=== PATIENT | female | born 1980 | race Caucasian/White ===

== ENCOUNTER 2022-08-22 07:36 | Outpatient (CLI) | payer OTHER, SELFPAY | END 2022-08-22 07:37 | disposition home or self-care (01) | LOC: OP CLINIC 07:37 | PROVIDERS: PCP Family Medicine; Visit Provider Internal Medicine | DX: Z12.11 Encounter for screening for malignant neoplasm of colon (principal); K63.89 Other specified diseases of intestine; K64.8 Other hemorrhoids; Z83.71 Family history of colonic polyps | CPT/HCPCS: 45378; J2250; J3010 ==

== ENCOUNTER 2022-09-24 21:02 | Emergency (ER) | payer OTHER, SELFPAY ==
[2022-09-24 21:09] VITALS: BP 149/87; PULSE 79; RESP 18; TEMP 36.1; O2SAT 100
--- NOTE | 2022-09-24 21:24 | ED.GENADULT ---
HPI - General Adult General Chief complaint: Ear/Nose/Throat Problem Stated complaint: ear pain on r side and possible pink eye Time Seen by Provider: 09/24/22 21:07 History of Present Illness HPI narrative: Patient is a 42-year-old female with right ear pain and right eye redness, mattering in the morning. Her son been sick with viral upper respiratory infection. She developed a right ear pain today. No cough no shortness of breath no chest pain. Related Data Home Medications Medication Instructions Recorded Confirmed ascorbic acid (vitamin C) 500 mg mg PO 06/12/22 06/12/22 capsule cholecalciferol (vitamin D3) 50 2,000 unit PO DAILY 06/12/22 06/12/22 mcg (2,000 unit) tablet famotidine 20 mg tablet 20 mg PO DAILY 06/12/22 06/12/22 hydroxychloroquine 200 mg tablet mg PO BID 06/12/22 06/12/22 Previous Rx's Medication Instructions Recorded cephalexin 500 mg capsule 500 mg PO QDAY PRN uti prophylaxis 06/12/22 #30 caps omeprazole 40 mg capsule,delayed 40 mg PO QDAY #30 caps 06/12/22 release peg 3350-electrolytes 236 240 ml PO Q10M #4,000 mL 06/12/22 gram-22.74 gram-6.74 gram-5.86 gram solution (Golytely) peg 3350-electrolytes 236 240 ml PO ONCE #4,000 mL 08/15/22 gram-22.74 gram-6.74 gram-5.86 gram solution (Golytely) Allergies Allergy/AdvReac Type Severity Reaction Status Date / Time nitrofurantoin Allergy Severe liver Verified 06/12/22 13:27 failure Review of Systems Narrative: No history of recurrent strep, pulmonary infections. 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 EtOH Smoking Status: Never smoker Non-prescribed substance use: denies use Exam Narrative: Exam Narrative: Objective: Vital signs show slightly elevated blood pressure Right eye conjunctivitis, right otitis media, left TM clear, throat clear, neck supple Const: Vital Signs, click to edit/add: Vital Signs - 24 hr 09/24/22 21:09 Temperature 97.0 F L Pulse Rate [Left P ulse Oximeter] 79 Respiratory Rate 18 Blood Pressure [Ri ght Upper Arm] 149/87 H Pulse Oximetry 100 Oxygen Delivery Me thod Room Air Course Vital Signs Vital signs: Initial Vital Signs Temperature 97.0 F L 09/24/22 21:09 Temperature Source Temporal Artery Scan 09/24/22 21:09 Pulse Rate 79 09/24/22 21:09 Pulse Rhythm Regular 09/24/22 21:09 Respiratory Rate 18 09/24/22 21:09 Blood Pressure 149/87 H 09/24/22 21:09 Blood Pressure Mean 107 09/24/22 21:09 Blood Pressure Position Sitting 09/24/22 21:09 Pulse Oximetry 100 09/24/22 21:09 Oxygen Delivery Method Room Air 09/24/22 21:09 Vital Signs Temperature 97.0 F L 09/24/22 21:09 Pulse Rate 79 09/24/22 21:09 Respiratory Rate 18 09/24/22 21:09 Blood Pressure 149/87 H 09/24/22 21:09 Pulse Oximetry 100 09/24/22 21:09 Oxygen Delivery Method Room Air 09/24/22 21:09 Temperature 97.0 F L 09/24/22 21:09 Pulse Rate 79 09/24/22 21:09 Respiratory Rate 18 09/24/22 21:09 Blood Pressure 149/87 H 09/24/22 21:09 Pulse Oximetry 100 09/24/22 21:09 Oxygen Delivery Method Room Air 09/24/22 21:09 Medical Decision Making MDM Narrative Medical decision making narrative: 42-year-old white female with history of upper respiratory infection right eye conjunctivitis and right otitis media. Will recommend Advil Tylenol, will give Keflex 500 now and then 500 b.i.d. times 10 days from [place] meds. Light activity, advance as tolerated, regular diet. Recheck with regular doctor as needed, return to ED problems or concerns Discharge Plan Discharge Clinical Impression: Acute right otitis media, Conjunctivitis Patient Disposition: Home, Self-Care Condition: Stable Additional Instructions: Light activity, Keflex twice a day times 10 days, Tylenol Advil as needed. Return to the ED as needed, follow-up primary care as needed. Activity Level: Light activity Discharge Diet: Regular Prescriptions: No Action famotidine 20 mg tablet 20 mg PO DAILY hydroxychloroquine 200 mg tablet PO BID cholecalciferol (vitamin D3) 50 mcg (2,000 unit) tablet 2,000 unit PO DAILY ascorbic acid (vitamin C) 500 mg capsule PO cephalexin 500 mg capsule 500 mg PO QDAY PRN (Reason: uti prophylaxis) Qty: 30 3RF Rx Instructions: Take on dose after intercourse for UTI prevention omeprazole 40 mg capsule,delayed release(DR/EC) 40 mg PO QDAY Qty: 30 11RF peg 3350-electrolytes [Golytely] 236-22.74-6.74 -5.86 gram recon soln 240 ml PO Q10M Qty: 4000 0RF Rx Instructions: until fecal effluent is clear peg 3350-electrolytes [Golytely] 236-22.74-6.74 -5.86 gram recon soln 240 ml PO ONCE Qty: 4000 0RF Rx Instructions: 4pm day prior to procedure. Drink 8oz glass every15 minutes until 1/2 of solution is gone. 6 hours prior to procedure time drink 8oz glass every 15 minutes until remaining solution is gone. Follow Up/Referrals: Colt Recinos MD [Primary Care Provider] - Stand Alone Forms: [facility] Info Instructions
[2022-09-24] MEDS: cephALEXin 500 MG CAPSULE PO (21:32)
--- OUTSIDE RECORDS SUMMARY | 2022-09-24 21:34 | XMS_ITS | Continuity of Care Document ---
Author Name Unknown Organization [facility] Address [address] [address] [place] [address] Phone Care Team Providers Care Retail Beauty Specialist Name Role Phone Unavailable Unavailable Unavailable Allergies, Adverse Reactions, Alerts Substance Reaction Status Criticality nitrofurantoin cholestatic hepatitis(severe) Active No Information WARNIN allergy(ies) could not be collected because the type is not supported. Please contact the source practice for further details. Medications Medication Instructions Dosage Effective Dates (start - stop) Status Comments ursodiol 300 mg capsule take 1 Capsule by oral route 3 times every day with food 1 Capsule - No Longer Active Kelnor 1/35 (28) 1 mg-35 mcg tablet take 1 tablet by oral route every day 1.00 tablet - No Longer Active Macrobid 100 mg capsule take 1 capsule (100MG) by oral route every day as needed after intercourse - No Longer Active ibuprofen 200 mg tablet take 1 tablet (200MG) by ORAL route every 6 hours as needed for joint pain 200 MG - No Longer Active Zantac Maximum Strength 150 mg tablet take 1 tablet (150MG) by oral route every day as needed - No Longer Active Procedures Procedure Date Offic/outpt E&m Estab Low-mod 4 Routine Serum Collection Hepatic Function Panel Routine Serum Collection Hepatic Function Panel Routine Serum Collection Hepatic Function Panel Prothrombin Time Routine Serum Collection Hepatic Function Panel Prothrombin Time Routine Serum Collection Gg; Ige Hepatic Function Panel Creatinine; Bld Prothrombin Time Gg; Iga, Igd, Igg, Igm, Ea Offic/outpt E&m Estab Mod-hi 2 14 Subsqt Hosp-da E&m Minr Compl 4 Init Inpt Cons New/est Mod-hi 4 Advance Directives Directive Yes / No Effective Date File Name No Information Encounters Encounter Description Practice Location Reason(s) For Visit Diagnoses Date Provider Providers Copied on Encounter Offic/outpt E&m Estab Low-mod [facility], [address] [address], [place], [place], [id number], [place] tel:[phone] [facility] Liver Symptoms or Concerns (chief complaint) Hepatitis Nos 3 0-201 4 No Information Referring Provider: Referral Self. [facility], [address] [address], [place], [place], [id number], [place] tel:[phone] [facility] Hepatitis Nos 2 3-201 4 No Information Referring Provider: Referral Self. [facility], [address] [address], [place], [place], [id number], [place] tel:[phone] [facility] Hepatitis Nos Sep-2 4-201 4 No Information Referring Provider: Referral Self. [facility], [address] [address], [place], [place], [id number], [place] tel:[phone] [facility] Hepatitis Nos Aug-2 7- 4 Katty Nance. [address] [facility], [place], [place], [id number], [place]. tel:[phone] Referring Provider: Referral Self. [facility], [address] [address], [place], [place], [id number], [place] tel:[phone] [facility] Hepatitis Nos Aug-2 6-201 4 No Information Referring Provider: Referral Self. [facility], [address] [address], [place], [place], [id number], [place] tel:[phone] [facility] Hepatitis Nos Aug-0 2-201 4 No Information [facility], [address] [address], [place], [place], [id number], [place] tel:[phone] [facility] Hepatitis Nos Fe 4 No Information Referring Provider: Referral Self. [facility], [address] [address], [place], [place], [id number], tel:[phone] [facility] Hepatitis Nos 4 No Information [facility], [address] [address], [place], [place], [id number], [place] tel:[phone] [facility] Hepatitis NosRUQ Pain 4 No Information Referring Provider: Referral Self. Offic/outpt E&m Estab Mod-hi 2 [facility], [address] [address], [place], [place], [id number], tel:[phone] [facility] Hepatitis NosRUQ Pain 0 4 No Information Referring Provider: Referral Self. Subsqt Hosp-da E&m Minr Compl [facility], [address] [address], [place], [place], [id number], tel:[phone] [facility] No Information 4 [facility]. [address] [place] [address], [id number], . tel:[phone] Referring Provider: Jenny Smallwood, [address] [place], [address]. tel:[phone] Init Inpt Cons New/est Mod-hi [facility], [address] [address], [place], [place], [id number], [place] tel:[phone] [facility] No Information 4 Pete Diego. [address] [place] [address], [id number], . tel:[phone] Referring Provider: Jenny Smallwood, [address] [place], [address]. tel:[phone] Family History Family Member Type Diagnosis Age At Onset First degree family history Problem (finding) No history of Cancer, colon First degree family history Problem (finding) No Family history of No history of Colon Polyps First degree family history Problem (finding) No history of Crohn's First degree family history Problem (finding) alcoholism First degree family history Problem (finding) No history of Ulcerative Colitis First degree family history Problem (finding) peptic ulceration Payers Payer name Insurance type Covered constitution party ID Zack pastrana(s) [employer] Of [facility] [id number] Social History Type Description Quantity Date Captured Comments Alcohol Use Details Caffeine Use Details Unknown Tobacco Use Status Never smoked tobacco 2013 Smoking Status Never smoker Non-Smoking Tobacco Use Details : No Details Available : No Details Available Sex Female Vital Signs Date / Time: Height Weight BMI Pulse Rate Blood Pressure Temperature Respiratory Rate Body Surface Area Head Circumference Head Circ. Percentile Wt./Julien. Percentile BMI percentile Pulse Ox Inhaled Ox 10:01 AM 71.00 in 92.533 kg (204.00 lbs) 28.4 5 kg/m eter (2) 68 /min 110/75 mm[Hg] Chief Complaint And Reason For Visit From encounter dated '12/22/2013 10:00'. Liver Symptoms or Concerns (chief complaint). Description: This very pleasant 33-year-old woman presented to Hepatology Clinic 07/04/2013 with an acute cholestatic hepatitis. The last week of May2013 she noted malaise and fatigue with loss of appetite. In early June 2013, she developed rapidly progressive cholestasis associated with pruritus and more profound nausea with anorexia. Clinical and laboratory evaluation favored a drug induced liver injury, most likely related to nitrofurantoin which was completed about 7-8 days prior to the onset of icterus. She was on female steroid hormone therapy for BCP as Kelnor regularly up to the onset of this cholestasis. Though not a new medication for her the Kelnor was stopped as well. For more complete detail I refer the reader to the initial Hepatology consultation 07/04/2013.She has been followed clinically and by serial laboratory with rapid resolution of symptoms and steady normalization of liver function tests (LFT). Essentially normal 10/16/2013 LFT panel is now fully normal 12/15/2013. She now feels well. There is no other identified significant interval medical or surgical illness. She would like to restart a BCP. Reason For Referral Reason For Referral No Information Plan Of Treatment Date Type Action Status No Information History Of Present Illness Encounter Date Complaint History Of Prese nt Illness Liver Symptoms or Concerns This very pleasant 33-year-old woman presented to Hepatology Clinic 07/04/2013 with an acute cholestatic hepatitis. The last week of May 2013 she noted malaise and fatigue with loss of appetite. In early June 2013, she developed rapidly progressive cholestasis associated with pruritus and more profound nausea with anorexia. Clinical and laboratory evaluation favored a drug induced liver injury, most likely related to nitrofurantoin which was completed about 7-8 days prior to the onset of icterus. She was on female steroid hormone therapy for BCP as Kelnor regularly up to the onset of this cholestasis. Though not a new medication for her the Kelnor was stopped as well. For more complete detail I refer the reader to the initial Hepatology consultation 07/04/2013.She has been followed clinically and by serial laboratory with rapid resolution of symptoms and steady normalization of liver function tests (LFT). Essentially normal 10/16/2013 LFT panel is now fully normal 12/15/2013. She now feels well. There is no other identified significant interval medical or surgical illness. She would like to restart a BCP. Functional Status Date Functional Assessmen t No Information Medications Administered Medication Instructions Dosage Effective Dates (start - stop) Status Comments No Drug Therapy Prescribed Instructions Date Instruction Additional Infor mation No Information Assessments Type Assessment Date assessment Hepatitis Nos impression It is my impression that this very pleasant 33 year old woman experienced an acute cholestatic hepatitis, fortunately without convincing evidence of hepatocellular failure and with timely recovery. The working diagnosis needs to be DILI (drug induced liver injury). The likely agent was nitrofurantoin (last taken about 1 week prior to onset of icterus). Though it cannot be fully excluded it is less likely this was related to Kelnor (ethynodiol/ ethinyl estradiol). This process is now fully resolved and should not produce further health risk. It is recommended that in 2015 at an annual general medical examination liver function test panel (LFT) be repeated once more.She should be considered as allergic to nitrofurantoin. I would not retest this.The female steroid hormone product is less likely to be the cause. If it is elected to restart a female steroid hormone therapy, I would recommend checking LFT & INR at 2, 4 & 12 weeks of therapy, sooner if any symptoms. Mental Status Date Cognitive Assessment Orientation - Anderson ed to time, place, person, situation. Patient Care Teams Name Effective Dates (start - stop) Status Members No Information
== END 2022-09-24 21:38 | disposition home or self-care (01) ==
LOC: ED 21:32
PROVIDERS: Emergency Provider Family Medicine; PCP Family Medicine
DX: H66.91 Otitis media, unspecified, right ear (principal); H10.021 Other mucopurulent conjunctivitis, right eye
CPT/HCPCS: 99283; A9270

== ENCOUNTER 2023-10-01 07:42 | Outpatient (CLI) | payer OTHER, SELFPAY ==
--- OUTSIDE RECORDS SUMMARY | 2023-10-05 10:07 | XMS_ITS | Clinical Summary ---
Author Name Unknown Organization [place] Address [address] [place] [id number] Care Team Providers Care Agricultural Education Professor Name Role Phone [facility], [facility] Primary Care Provider Alice Dey PA-C Unavailable [phone] Allergies Active Allergy Reactions Criticality Noted Date Comments Nitrofurantoin Other (See Comments) High 03/10/2015 Liver issues/ jaundice. Medications Medication Sig Dispensed Refills Start Date End Date Status Multiple Vitamin (MULTI-VITAMIN DAILY PO) Multi Vitamin Active hydroxychloroquine (PLAQUENIL) 200 MG tablet Take 200 mg by mouth 2 times daily Active omeprazole (PRILOSEC) [address] capsule Take 40 mg by mouth daily Active cephALEXin (KEFLEX) 500 MG capsule Take 500 mg by mouth as needed Active cholecalciferol (VITAMIN D3) 125 mcg (5000 units) capsule Take 125 mcg by mouth daily Active ascorbic acid (VITAMIN C) 250 MG CHEW chewable tablet Take 500 mg by mouth daily Active Active Problems Problem Noted Date Diagnosed Date (spontaneous vaginal delivery) 03/12/2015 Indication for care or inter vention related to labor and delivery 03/10/2015 Overview: Diagnosis updated by automated process. Provider to review and confirm. Jaundice 06/27/2013 Family History Relation Status Comments Father Alive Mother Alive Social History Tobacco Use Types Packs/Day Years Used Date Smoking Tobacco: Never Tobacco Cessation:Counseling Given: Not Answered Alcohol Use Standard Drinks/Week Comments No 0 (1 standard drink = 0.6 oz pur e alcohol) PHQ-2 Answer Date Recorded PHQ-2 Score 0 07/26/2022 Adolescent Education Answer Date Record ed Getting School Help Needed Not on file 03/25 Sex and Gender Information Value Date Recorded Sex Assigned at Not on file Gender Identity Not on file Sexual Orientation Not on file Last Filed Vital Signs Vital Sign Reading Time Taken Comments Blood Pressure 120/78 07/26/2022 1:14 PM COSMETOLOGY INSTRUCTOR Pulse 92 07/26/2022 1:14 PM COSMETOLOGY INSTRUCTOR Temperature 36.8 ??C (98.3 ??F) 03/14/2015 8:44 AM CD T Respiratory Rate 16 03/14/2015 8:44 AM CDT Oxygen Saturation 99% 07/26/2022 1:14 PM COSMETOLOGY INSTRUCTOR Inhaled Oxygen Concentration - - Weight 92.5 kg (204 lb) 07/26/2022 1:14 PM COSMETOLOGY INSTRUCTOR Height 180.3 cm (5' 11) 07/26/2022 1:14 PM COSMETOLOGY INSTRUCTOR Body Mass Index 28.45 07/26/2022 1:14 PM COSMETOLOGY INSTRUCTOR Plan of Treatment Health Maintenance Due Date Last Done Comments ADVANCE CARE PLANNING 1982 ANNUAL REVIEW OF HM ORDERS 1982 MAMMO SCREENING 1982 HEPATITIS B IMMUNIZATION (1 of 3 - 19+ 3-dose series) 2001 YEARLY PREVENTIVE VISIT 09/23/2021 09/23/2020 LIPID 2022 COVID-19 Vaccine ( season) 2023 INFLUENZA VACCINE (#1) 2023 9, 04/25/2018, 03/25/2016, Additional history exists PHQ-2 (once per calendar year) 2023 07/26/2022 DTAP/TDAP/TD IMMUNIZATION (2 - Td or Tdap) 01/12/2025 01/12/2015 GLUCOSE 07/26/2025 07/26/2022, 11/2013, 06/29/2013, Additional history exists HPV TEST 06/28/2028 06/28/2023, 09/2023, 09/23/2020, Additional history exists PAP 06/28/2028 06/28/2023, 06/2020, 09/23/2020 HEPATITIS C SCREENING Completed 06/28/2013 HIV SCREENING Completed 08/21/2014 HPV IMMUNIZATION Aged Out No longer e ligible based on patient's age to complete this topic IPV IMMUNIZATION Aged Out No longer e ligible based on patient's age to complete this topic MENINGITIS IMMUNIZATION Aged Out No l onger eligible based on patient's age to complete this topic Pneumococcal Vaccine: Pediatrics (0 to 5 Years) and At-Risk Patients (6 to 64 Years) Aged Out No longer eligible based on patient's age to complete this topic RSV MONOCLONAL ANTIBODY Aged Out No l onger eligible based on patient's age to complete this topic Procedures Procedure Name Priority Date/Time Associated Diagnosis Comments GYNECOLOGIC CYTOLOGY Routine 06/28/2023 10:16 AM COSMETOLOGY INSTRUCTOR Encounter for gynecological examination (general) (routine) without abnormal findings BASIC METABOLIC PANEL Routine 07/26/2022 2:02 PM COSMETOLOGY INSTRUCTOR History of recurrent UTIs HIV ANTIGEN ANTIBODY COMBO Routine 08/21/2014 HEPATITIS C ANTIBODY Timed 06/28/2013 1:00 PM COSMETOLOGY INSTRUCTOR REMOVE IMPACTED EAR WAX Routine 09/05/2000 1:35 PM COSMETOLOGY INSTRUCTOR Impacted Cerumen from Last 3 Months or Most Recently Relevant to Health Maintenance Results * Gynecologic Cytology (PAP) (06/28/2023 10:16 AM COSMETOLOGY INSTRUCTOR) Interpretation Negative for Intraepithelial Lesion or Malignancy (NILM) 07/02/2023 3:03 PM COSMETOLOGY INSTRUCTOR [facility] Comment Papanicolaou Test Limitations: Cervical cytology is a screening test with limited sensitivity, and regular screening is critical for cancer prevention. Pap tests are primarily effective for the diagnosis/prevent ion of squamous cell carcinoma, not adenocarcinoma or other cancers. 07/02/2023 3:03 PM COSMETOLOGY INSTRUCTOR [facility] Specimen Adequacy Satisfactory for evaluation, endocervical/childers sformation zone component present 07/02/2023 3:03 PM COSMETOLOGY INSTRUCTOR [facility] Clinical Information none 07/02/2023 3:03 PM COSMETOLOGY INSTRUCTOR [facility] LMP/Menopause Date 06/07/23 07/02/2023 3:03 PM COSMETOLOGY INSTRUCTOR [facility] Reflex Testing Yes regardless of result 07/02/2023 3:03 PM COSMETOLOGY INSTRUCTOR [facility] Previous Abnormal? No 07/02/2023 3:03 PM COSMETOLOGY INSTRUCTOR [facility] Previous Abnormal Diagnosis negative 07/02/2023 3:03 PM COSMETOLOGY INSTRUCTOR [facility] Performing Labs The technical component of this testing was completed at [facility] 07/02/2023 3:03 PM COSMETOLOGY INSTRUCTOR [facility] Brushing ENDOCERVICAL STRUCTURE / Unknown 06/28/2023 10:16 AM COSMETOLOGY INSTRUCTOR 06/28/2023 3:38 PM [facility] Annahemanth Borden Tracy CN LAB - [place] [facility] Specialty Lab [address] [facility], [address] [address], [facility] [phone] * (ABNORMAL) Basic metabolic panel (07/26/2022 2:02 PM COSMETOLOGY INSTRUCTOR) Sodium 140 136 - 145 mmol/L 07/26/2022 6:07 PM [facility] Potassium 3.8 3.4 - 5.3 mmol/L 07/26/2022 6:07 PM [facility] Chloride 101 98 - 107 mmol/L 07/26/2022 6:07 PM [facility] Carbon Dioxide (CO2) 26 22 - 29 mmol/L 07/26/2022 6:07 PM [facility] Anion Gap 13 7 - 15 mmol/L 07/26/2022 6:07 PM [facility] Urea Nitrogen 11.7 6.0 - 20.0 mg/dL 07/26/2022 6:07 PM [facility] Creatinine 0.95 0.51 - 0.95 mg/dL 07/26/2022 6:07 PM [facility] Calcium 9.5 8.6 - 10.0 mg/dL 07/26/2022 6:07 PM [facility] Glucose 100(H) 70 - 99 mg/dL 07/26/2022 6:07 PM [facility] GFR Estimate 77 >60 mL/min/1.7 3m2 07/26/2022 6:07 PM [facility] Comment:eGFR calculated usin 2020 CKD-EPI equation. Blood STRUCTURE OF RIGHT UPPER LIMB / Unknown Venipuncture / Unknown 07/26/2022 2:02 PM COSMETOLOGY INSTRUCTOR 07/26/2022 2:02 PM COSMETOLOGY INSTRUCTOR Alice Dey PA-C LAB - BLOOD ORDJeri [facility]IR [facility] Lab [address], [address] [place] [address], [facility] [phone] * HIV Antigen Antibody Combo (08/21/2014) HIV Antigen Antibody Combo Negative Blood specimen (specimen) Patient Reported LAB - BLOOD ORDERABL ES * Hepatits C antibody (06/28/2013 1:00 PM COSMETOLOGY INSTRUCTOR) Hepatitis C Antibody Negative NEG [facility] Blood specimen (specimen) 06/28/2013 1:00 PM COSMETOLOGY INSTRUCTOR 06/28/2013 1:03 PM COSMETOLOGY INSTRUCTOR Rima Mccord MD, LAB - BLOOD ORDERA BLES [facility] from Last 3 Months or Most Recently Relevant to Health Maintenance Advance Directives For more information, please contact: [phone] * Full Code (Latest Code Status on File) Date Activated Date Inactivated Comments 06/27/2013 5:49 PM 06/30/2013 5:52 PM Care Teams Agricultural Education Professor Relationship Specialty Start Date End Date [place], [facility] [address] [address] PCP - General 06/27/13 Alice Dey PA-C [address] [place] [address] Assigned Surgical Provider 07/19/23
--- OUTSIDE RECORDS SUMMARY | 2023-10-05 10:07 | XMS_ITS | Referral Summary ---
Author Name Unknown Organization [place] Address [address] [place] [address] Care Team Providers Care Cruise Coordinator Name Role Phone [facility], [facility] Primary Care Provider Alice Dey PA-C Unavailable [phone] Allergies Active Allergy Reactions Criticality Noted Date [...] Provider to review and confirm. 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 Pulse 92 07/26/2022 1:14 PM MOTOR VEHICLE ASSEMBLER Temperature 36.8 ??C (98.3 ??F) 03/14/2015 8:44 AM CD T Respiratory Rate 16 03/14/2015 8:44 AM CDT Oxygen Saturation 99% 07/26/2022 1:14 PM MOTOR VEHICLE ASSEMBLER Inhaled Oxygen Concentration - - Weight 92.5 kg (204 lb) 07/26/2022 1:14 PM MOTOR VEHICLE ASSEMBLER Height 180.3 cm (5' 11) 07/26/2022 1:14 PM MOTOR VEHICLE ASSEMBLER Body Mass Index 28.45 07/26/2022 1:14 PM MOTOR VEHICLE ASSEMBLER Plan of Treatment Not on file Procedures Procedure Name Priority Date/Time Associated Diagnosis Comments GYNECOLOGIC CYTOLOGY Routine 06/28/2023 10:16 AM MOTOR VEHICLE ASSEMBLER Encounter for gynecological examination (general) (routine) without abnormal findings BASIC METABOLIC PANEL Routine 07/26/2022 2:02 PM MOTOR VEHICLE ASSEMBLER History of recurrent UTIs HIV ANTIGEN ANTIBODY COMBO Routine 08/21/2014 HEPATITIS C ANTIBODY Timed 06/28/2013 1:00 PM MOTOR VEHICLE ASSEMBLER REMOVE IMPACTED EAR WAX Routine 09/05/2000 1:35 PM MOTOR VEHICLE ASSEMBLER Impacted Cerumen from Last 3 Months or Most Recently Relevant to Health Maintenance Results * Gynecologic Cytology (PAP) (06/28/2023 10:16 AM MOTOR VEHICLE ASSEMBLER) Interpretation Negative for Intraepithelial Lesion or Malignancy (NILM) 07/02/2023 3:03 PM MOTOR VEHICLE ASSEMBLER [facility] Comment Papanicolaou Test Limitations: Cervical cytology is a screening test with limited sensitivity, and regular screening is critical for cancer prevention. Pap tests are primarily effective for the diagnosis/prevent ion of squamous cell carcinoma, not adenocarcinoma or other cancers. 07/02/2023 3:03 PM MOTOR VEHICLE ASSEMBLER [facility] Specimen Adequacy Satisfactory for evaluation, endocervical/childers sformation zone component present 07/02/2023 3:03 PM MOTOR VEHICLE ASSEMBLER [facility] Clinical Information none 07/02/2023 3:03 PM MOTOR VEHICLE ASSEMBLER [facility] LMP/Menopause Date 06/07/23 07/02/2023 3:03 PM MOTOR VEHICLE ASSEMBLER [facility] Reflex Testing Yes regardless of result 07/02/2023 3:03 PM MOTOR VEHICLE ASSEMBLER [facility] Previous Abnormal? No 07/02/2023 3:03 PM MOTOR VEHICLE ASSEMBLER [facility] Previous Abnormal Diagnosis negative 07/02/2023 3:03 PM MOTOR VEHICLE ASSEMBLER [facility] Performing Labs The technical component of this testing was completed at [facility] 07/02/2023 3:03 PM [facility] Brushing ENDOCERVICAL STRUCTURE / Unknown 06/28/2023 10:16 AM MOTOR VEHICLE ASSEMBLER 06/28/2023 3:38 PM MOTOR VEHICLE ASSEMBLER Anna SALGUERO [facility] Specialty Lab [address] [facility], [address] [place] [address], [facility] [phone] * (ABNORMAL) Basic metabolic panel (07/26/2022 2:02 PM MOTOR VEHICLE ASSEMBLER) Sodium 140 136 - 145 mmol/L 07/26/2022 6:07 PM [facility] Potassium 3.8 3.4 - 5.3 mmol/L 07/26/2022 6:07 PM [facility] Chloride 101 98 - 107 mmol/L 07/26/2022 6:07 PM [facility] Carbon Dioxide (CO2) 26 22 - 29 mmol/L 07/26/2022 6:07 PM [facility] Anion Gap 13 7 - 15 mmol/L 07/26/2022 6:07 PM [facility] Urea Nitrogen 11.7 6.0 - 20.0 mg/dL 07/26/2022 6:07 PM [facility] Creatinine 0.95 0.51 - 0.95 mg/dL 07/26/2022 6:07 PM [facility] Calcium 9.5 8.6 - 10.0 mg/dL 07/26/2022 6:07 PM MOTOR VEHICLE ASSEMBLER [facility] Glucose 100(H) 70 - 99 mg/dL 07/26/2022 6:07 PM MOTOR VEHICLE ASSEMBLER [facility] GFR Estimate 77 >60 mL/min/1.7 3m2 07/26/2022 6:07 PM MOTOR VEHICLE ASSEMBLER [facility] Comment:eGFR calculated usin 2020 CKD-EPI equation. Blood STRUCTURE OF RIGHT UPPER LIMB / Unknown Venipuncture / Unknown 07/26/2022 2:02 PM MOTOR VEHICLE ASSEMBLER 07/26/2022 2:02 PM MOTOR VEHICLE ASSEMBLER Alice Dey PA-C LAB - BLOOD ORDE [facility] Acute Care Lab [address], [address] [place] [address], [facility] [phone] * HIV Antigen Antibody Combo (08/21/2014) HIV Antigen Antibody Combo Negative Blood specimen (specimen) Patient Reported LAB - BLOOD ORDERABL ES * Hepatits C antibody (06/28/2013 1:00 PM MOTOR VEHICLE ASSEMBLER) Hepatitis C Antibody Negative NEG [facility] Blood specimen (specimen) 06/28/2013 1:00 PM MOTOR VEHICLE ASSEMBLER 06/28/2013 1:03 PM MOTOR VEHICLE ASSEMBLER Rima Mccord MD, MD LAB - BLOOD ORDERA BLES [facility] from Last 3 Months or Most Recently Relevant to Health Maintenance Advance Directives For more information, please contact: [phone] * Full Code (Latest Code Status on File) Date Activated Date Inactivated Comments 06/27/2013 5:49 PM 06/30/2013 5:52 PM Care Teams Cruise Coordinator Relationship Specialty Start Date End Date [facility] [id number] [place] [id number] PCP - General 06/27/13 Alice Dey, PAEmiliaC [address] [place] [id number] Assigned Surgical Provider 07/19/23
--- OUTSIDE RECORDS SUMMARY | 2023-10-05 10:08 | XMS_ITS | Continuity of Care Document ---
Author Name Unknown Address [address] [place] [address] Phone [phone] Organization [facility] [employer], [id number] Address [address] [facility] [address] [place] [address] Assessment No assessment recorded. Plan of Treatment Reminders Order Date Submit Date Provider Last Modified By Organization Details Last Modified Time Details Appointments None recorded. Lab bacterial vaginosis + vaginitis panel, vaginal 2023 024 [id number] , [address] [place] [address], [address], [place], [address], 16:42:45 Referral None recorded. Procedures None recorded. Surgeries None recorded. Imaging None recorded. Medication Orders None recorded. Patient TargetsNo targets recorded. Patient InstructionsNo instructions recorded. Reason for Referral Urologist Referral for Urina ry symptoms Please call pt. to schedule multiple UTI's in the past year Referring Physician: Ana Molina, [employer]ICAL MATERIAL WORKER, Encounter Date: 06/23/2022 Results Created Date Observation Date Name Description Value Unit Range Abnormal Flag LastModifiedBy Organization Detail LastModifiedTime 08/14/19 24 08/14/2023 bacte rial vagin osis + vagin itis panel , vagin al gardnerella negati ve negati ve Not Available [id number] [address] [facility] [address], [place], [address], 08/14/2023 15:50:32 08/14/19 24 08/14/2023 bacte rial vagin osis + vagin itis panel , vagin al trichomonas negati ve negati ve Not Available [id number], [place], [address], 08/14/2023 15:50:32 08/14/19 24 08/14/2023 bacte rial vagin osis + vagin itis panel , vagin al judi positi ve negati ve Not Available [id number], [place], [address], 08/14/2023 15:50:32 Result Notes None recorded. Problems No Known Problems Procedures Surgical History Date Name Laterality Status Provider Name and Address Organization Details Recorded Time 06/28/19 24 Date of Last Pap Smear completed Becky Conte null, [place] - [facility] [employer] 07/05/2023 10:40:34 06/22/20 22 Date of Last Mammogram completed Tammy Rowley null [place] - [facility] [employer] 08/14/2023 15:24:26 06/21/20 22 IUD Removal Procedure Note ([facility]) completed ANA MOLINA, CNLary [id number] [facility],[address], [place], [address], [place] - [facility] [employer] 06/23/2022 12:17:41 01/01/20 20 Other completed Ana Maria Feliciano null, [place] - [facility] [employer] 02/28/2022 10:05:39 12/24/19 20 Cholecystectomy completed Jackeline Mckenzie null, [place] - [facility] [employer] 09/23/2020 11:30:12 Insert intrauterine device completed Ana Weldon null, [place] - [facility] [employer] 02/28/2022 10:04:49 Imaging Results None recorded. Procedure Notes None recorded. Medical Equipment None Reported. Allergies Allergen ID Allergen Name Allergen Category Reaction Reaction Severity Criticality Documentation Date Start Date Code Code System Note Provider Name and Address Organization Details Recorded Time [id number] nitrofura ntoin medicatio n Not available Not available Not available 01/30/2020 7454 RxNorm *Onse t: 4 *Note : 04/28 - liver issue s Not Available [facility] 0 16:58:51 Medications Name Sig Start Date Stop Date Status Note LastModified by Organization Details LastModified Time amoxicillin 500 mg capsule TAKE 1 CAPSULE BY MOUTH FOUR TIMES DAILY UNTIL ALL TAKEN 02/28 completed Not Available Not Available Not Available Mirena 21 mcg/24 hours (8 yrs) 52 mg intrauterin e device 08/14 completed Not Available Not Available Not Available sulfasalazi ne 500 mg tablet Take 4 tablets every day by oral route. 02/28 completed Not Available Not Available Not Available fluconazole 150 mg tablet TAKE 1 TABLET BY MOUTH FOR 1 DOSE AND REPEAT DOSE IN 72 HOURS X 2 active Not Available Not Available No t Available hydrocodone 5 mg-acetamin ophen 325 mg tablet TAKE 1 TABLET BY MOUTH EVERY 4-6 HOURS NEEDED FOR PAIN NOT RELIEVED WITH NSAIDS 02/01 completed Not Available Not Available Not Available meloxicam 15 mg tablet TAKE 1 TABLET BY MOUTH EVERY DAY active Not Available Not Available No t Available metronidazo le 0.75 % (37.5 mg/5 gram) vaginal gel 08/14 completed Not Available Not Available Not Available metronidazo le 500 mg tablet 08/14 completed Not Available Not Available Not Available ciprofloxac in 250 mg tablet 02/28 completed Not Available Not Available Not Available omeprazole 40 mg capsule,del ayed release TAKE 1 CAPSULE BY MOUTH EVERY DAY 08/14 completed Not Available Not Available Not Available carbamazepi ne 200 mg tablet TAKE 1 TABLET BY MOUTH DAILY 02/28 completed Not Available Not Available Not Available amoxicillin 875 mg tablet 08/14 completed Not Available Not Available Not Available famotidine 20 mg tablet 1 tablet every day by oral route. 06/21 completed Not Available Not Available Not Available cephalexin 500 mg capsule TAKE 1 CAPSULE BY MOUTH EVERY DAY AFTER INTERCOUR SE NEEDED FOR UTI PROPHYLAX IS OR UTI PREVENTIO N. active Not Available Not Available No t Available clindamycin 2 % vaginal cream INSERT 1 APPLICATO RFUL VAGINALLY EVERY NIGHT AT BEDTIME FOR 5 NIGHTS 08/14 completed Not Available Not Available Not Available hydroxychlo roquine 200 mg tablet TAKE 1 TABLET BY MOUTH EVERY DAY FOR 2 WEEKS THEN INCREASE TO TWICE DAILY active Not Available Not Available No t Available omeprazole ER 40 mg capsule,ext ended release 1 capsule every day by oral route. 2021 active Not Available Not Available Not Avai lable Bactrim DS 800 mg-160 mg tablet Take 1 tablet every 12 hours by oral route. 08/14 completed Not Available Not Available Not Available LEE-COLACE 8.6 mg-50 mg tablet 2014 active Not Available Not Available Not Avai lable moxifloxaci n 0.5 % eye drops 02/01 completed Not Available Not Available Not Available 1.5/30 (28) 1.5 mg-30 mcg (21)/75 mg (7) tablet 08/14 completed Not Available Not Available Not Available Calcium 500 06/20 completed Not Available Not Available Not Available GaviLyte-G 236 gram-22.74 gram-6.74 gram-5.86 gram oral solution 08/14 completed Not Available Not Available Not Available Multi Vitamin active Not Available Not Available Not Available cefixime 400 mg capsule 08/14 completed Not Available Not Available Not Available Vitals Date Recorded Body height Body mass index (BMI) Body weight Systolic blood pressure Diastolic blood pressure Provider Name and Address Organization Details Last Updated DateTime 08/14/2023 180.34 cm 30.1 kg/m2 40131.95 g 132 mm[Hg] 84 mm[Hg] [facility] Conde [employer] 15:28:58 Social History Question Answer Notes LastModified by Organizat ion Details LastModified Time Tobacco Smoking Status Never Smoker [facility] [employer] 09/16/2020 08:19:49 Do You Have An Advance Directive? No [email or web address] Information not available 06/28/2023 What Is Your Level Of Alcohol Consumption? Occasional Former [email or web address] Information not available 09/23/2020 What Is Your Level Of Caffeine Consumption? Occasional 0-1c/wk [email or web address] Information not available 06/28/2023 Which Illicit Or Recreational Drugs Have You Used? 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 Information not available 06/21/2022 Are You Sexually Active? Yes Information not available 06/21/2022 How Much Tobacco Do You Smoke? No Information not available 06/21/2022 Do You Use Any Illicit Or Recreational Drugs? No Information not available 06/21/2022 Sex: Female Functional Status Question Answer Note LastModified by Organizat ion Details LastModified Time What is your exercise level? Occasional Information not available 06/21/2022 Mental Status None recorded. Family History Relationship Description Onset Age of this Age Resolved Age Notes Maternal Grandmother Family history of breast cancer 40 Cancer Breast (had in 40's and 60's) Maternal Grandmother Family history of diabetes mellitus Diabetes Maternal Grandmother Diabetes mellitus 70 Mother Disorder of thyroid gland Thyroid Disease Mother Hyperlipidemia High Cholesterol / Hyperlipidemia Mother Hypertensive disorder Father Hyperlipidemia High Cholesterol / Hyperlipidemia Father Family history of diabetes mellitus father's resol rachel with weight loss Father Diabetes mellitus 65 Father Hypercholesterolemia Father Hypertensive disorder Paternal Grandmother Family history of diabetes mellitus Diabetes Paternal Grandmother Diabetes mellitus 65 80 Medical History Condition Response GI- Hemorrhoids Y Dermatology-Eczema/Psoriasis Y Rheumatology- Autoimmune Disease Y GI- Liver Disease/Hepatitis GI- Reflux/Ulcers Y GI- Gallbladder Disease Y Rheumatology- Arthritis Y Gynecological History Statement/Question Response HPV Test Negative Age at Menarche: 15 Date of Last Mammogram 06/22/2022 Date of LMP 07/30/2023 Current Control Method Vasectomy Date of Last Pap Smear 06/28/2023 Date of Last Diabetes Screening 04/28/20 19 Date of Last Cholesterol Screening 04/28 Obstetrics History GPAL:G 1 P 1 0 0 1 Type Value Multiple Births 0 Full Term 1 Induced 0 Spontaneous 0 Premature 0 Living 1 Ectopics 0 Total 1 Immunizations Vaccine Type Date Status Provider Name and Address Organization Details Recorded Time Tdap 01/12/2015 completed Not Available [facility] 01:08:36 Influenza, seasonal, injectable, preservative free 03/05/2015 completed Not Available [facility] 4 15:23:37 Influenza, seasonal, injectable 08/21/2014 completed Not Available [facility] 08/14/2023 15:23:37 Influenza, seasonal, injectable 04/28/2019 completed Not Available [facility] 08/14/2023 15:23:37 influenza, injectable, quadrivalent, preservative free 04/25/2018 completed Not Available [facility] 15:23:37 Influenza, injectable, MDCK, preservative free 03/25/2016 completed [facility] [employer] 06/22/2022 08:38:55 Past Encounters Encounter ID Performer Location Encounter Start Date Encounter Closed Date Diagnosis/Indication Diagnosis SNOMED-CT Code [id number] ALTON HUTTON MD [id number] [facility] [address] [facility], [address] [place] [address] 08/14/2023 15:23:13 08/14/2023 16:00:44 Vaginal irritation 472040055 Health Concerns Section Related Observation LastModified by Organization Detai ls LastModified Time None Recorded Concern Status LastModified by Organization Details LastModified Time None Recorded Payers Encounter Date Sequence Insurance Name Policy Number Policy Tuttle Covered Member ID Tuttle Member ID Guarantor Name 08/14/2023 1 [facility] [id number] Monica Oliva [id number] Monica Oliva Notes Date Note Type Note Provider Name and Address Organization Details Recorded Time 08/14/2023 text/html HPI Notes: Patient presents with concerns about vaginal/vulvar symptoms. She reports being treated for BV in August 2022 and Jan 2023. She started having symptoms of discharge, irritation about 3-4 weeks ago and used 5 days of metrogel (had this left over). Symptoms improved but did not resolve. Now she feels continued irritation, especially of vulva. She has some discharge, milky. She also notes that her labia feel swollen to her. She denies any abnormal bleeding. She is sexually active with only and [place] [id number] [facility],[address], [place], [address], [place] - [facility] [employer] 08/14/2023 15:56:44 OBGyn Episode No OBEpisode recorded.
--- OUTSIDE RECORDS SUMMARY | 2023-10-05 10:08 | XMS_ITS | Data Portability ---
Author Name Unknown Address [address] [place] [address] Phone [phone] Organization [facility] [employer], [id number] Address [address] [address] Assessment Encounter Date Assessment Date Assessment LastModified by Organization Details LastModified Time 06/21/2022 06/21/2022 Mirena IUD removed without difficulty Correct, consistent condom use advised UA positive for large amt leukocytes, based on symptoms, plan to treat, urine culture sent for confirmation, will inform patient of results Follow up with urology for multiple UTI's in the past year RTC prn shannon Not available 06/23/2022 12:19:21 02/01/2023 02/01/2023 BV panel collected for vaginal odor, irritation and discharge Vulvovaginal hygiene reviewed Daily probiotic recommended Will inform pt of results RTC prn [email or web address] Not available 02/01/2023 10:20:30 06/28/2023 06/28/2023 - Encouraged breast self-awareness and recommend yearly mammogram. - Encouraged regular exercise. - Calcium and vitamin D intake discussed. - Discussed appropriate breast cancer screening and mammogram intervals. - Counseled on perimenopause signs/symptoms. 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 Lab bacterial vaginosis + vaginitis panel, vaginal 2023 024 TAVON [id number] [facility] , [address] [facility] [address], [address], [place], [address], 4 16:42:45 Pap test, slide(s), cervical 2023 024 [facility], [address] [facility], [address], [place], [address], 4 18:21:38 bacterial vaginosis + vaginitis panel, vaginal 2022 023 [facility] , [address] [facility] [address], [address] [facility], [place], [address], 3 12:23:40 bacterial vaginosis + vaginitis panel, vaginal 2022 023 [facility]btsybabole[facility]r [facility] , [address] [facility] [address], [address], [place], [address], 3 11:10:57 culture, urine 2021 022 [facility], [address] [facility], [address], [place], [address], 2 11:22:18 hemoglobin (Hb), fingerstick , blood 2020 021 ahuepfel Zc919_hvyoqvpoleksandr [facility] , [address] [facility] [address], [address], [place], [address], 1 13:42:20 pap, LB 2020 021 [facility], [address] [place], [address], 1 07:53:55 HPV DNA, high-risk 2020 021 [facility], [address] [place], [address], 1 07:53:54 lipid panel, blood 2020 021 [facility], [address] [place], [address], 1 07:53:54 hemoglobin A1c + average glucose, QN, blood 2020 021 [facility], [address], [place], [address], 1 07:53:54 Referral None recorded. Procedures None recorded. Surgeries None recorded. Imaging None recorded. Medication Orders .5 (28) 1.5 mg-30 mcg (21)/75 mg (7) tablet 2022 023 [email or web address] 4 [id number], [address], [place], [phone], 4 15:30:02 Bactrim DS 800 mg-160 mg tablet 2021 022 [email or web address] 4 [facility] #14896, [address], [place], [phone], 4 15:29:10 Patient TargetsNo targets recorded. Patient Instructions Encounter Date Encounter Id Patient Instructions Last Modified By Organization Details Last Modified Time 02/28/2022 [id number] - Encouraged breast self-awareness and monthly breast exams. Start screening mammograms at age 40 - Calcium and vitamin D intake discussed. - Patient will return to clinic for fasting labs. - Discussed appropriate breast cancer screening and mammogram intervals. - discussed urology consult for recurrent UTIs - Mirena inserted 05/21/2017, current through 04/2024 Not available 02/28/2022 10:37:03 Reason for Referral Urologist Referral for Urina ry symptoms Please call pt. to schedule multiple UTI's in the past year Referring Physician: Ana Molina, [employer], Encounter Date: 06/23/2022 Results Created Date Observation Date Name Description Value Unit Range Abnormal Flag LastModifiedBy Organization Detail LastModifiedTime 09/23/2020 hemog lobin (Hb), finge rstic k, blood fingerstick hemoglobin 13.2 g/dL 12.0-1 5.0 Not Available [id number] le_jayton [address] [facility] [address], [place], [address], 09/23/2020 11:29:45 09/24/1909/23/2020 lipid panel , blood specimen type Not Available [facility] [address] [place], [address], 10/04/2020 07:53:54 09/24/19 21 09/23/2020 lipid panel , blood cholesterol 179 mg/dL <200 Not Available [facility] [address] [place], [address], 10/04/2020 07:53:54 09/24/19 21 09/23/2020 lipid panel , blood triglyceride s profile 64 mg/dL <150 Not Available [facility] [address] [place], [address], 10/04/2020 07:53:54 09/24/19 21 09/23/2020 lipid panel , blood LDL chol, calc 104 mg/dL <100 high Not Available [facility] [address] [place], [address], 10/04/2020 07:53:54 09/24/1909/23/2020 lipid panel , blood HDL cholesterol 62 mg/dL >40 Not Available [facility] [address] [place], [address], 10/04/2020 07:53:54 09/24/19 21 09/23/2020 lipid panel , blood chol/HDL ratio 2.9 0.0-4. 9 Not Available [facility] [address], [place], [address], 10/04/2020 07:53:54 09/24/19 21 09/23/2020 hemog lobin A1c + avera ge gluco se, QN, blood HbA1C (glycosolate d HGB) 5.0 % <5.7 Not Available [facility] [address] [place], [address], 10/04/2020 07:53:54 09/24/19 21 09/23/2020 hemog lobin A1c + avera ge gluco se, QN, blood EAG (est. average glucose) 97 mg/dL <117 Not Available [place] [address], [place], [address], 10/04/2020 07:53:54 09/24/19 21 09/23/2020 HPV DNA, high- risk HPV high risk type 16 negati ve for HPV type 16. negati ve for HPV type 16. Not Available [place] [address] [place], [address], 10/04/2020 07:53:54 09/24/19 21 09/23/2020 HPV DNA, high- risk HPV high risk type 18 negati ve for HPV type 18. negati ve for HPV type 18. Not Available [facility] [address] [place], [address], 10/04/2020 07:53:54 09/24/19 21 09/23/2020 HPV DNA, high- risk HPV other high risk types negati ve for other high risk HPV types. negati ve for other high risk HPV types. Not Available [facility], [place], [address], 10/04/2020 07:53:54 09/24/19 21 09/23/2020 pap, LB case report see note Not Available [facility] [address], [place], [address], 10/04/2020 07:53:55 06/21/20 22 06/21/2022 URINE CULTU RE urine culture see result s below Not Available [address], [place], [address], 06/23/2022 11:22:18 06/21/20 22 06/21/2022 urina lysis , dipst ick Unknown Analyte Clean Catch Not Available [id number]_jmjyrtlrolo troncosoa [address], [place], [address], 06/21/2022 12:33:54 06/21/20 22 06/21/2022 urina lysis , dipst ick Unknown Analyte negati ve Not Available Ex926_tccgzwj le_edina [address], [place], [address], 06/21/2022 12:33:54 06/21/20 22 06/21/2022 urina lysis , dipst ick Unknown Analyte negati ve Not Available Kw791_rdfnjpo le_edina [address], [place], [address], 06/21/2022 12:33:54 06/21/20 22 06/21/2022 urina lysis , dipst ick Unknown Analyte negati ve Not Available [id number]_ltcwmjmrolo troncosoa [address], [place], [address], 06/21/2022 12:33:54 06/21/20 22 06/21/2022 urina lysis , dipst ick Unknown Analyte 1.000 Not Available Vu742_fygbqluciano patten [address], [place], [address], 06/21/2022 12:33:54 06/21/20 22 06/21/2022 urina lysis , dipst ick Unknown Analyte negati ve Not Available Lu940_vtmtjxdoleksandr siegel [address], [place], [address], 06/21/2022 12:33:54 06/21/20 22 06/21/2022 urina lysis , dipst ick Unknown Analyte 8.5 Not Available Jp018_vagstluciano pat[place] [address], [place], [address], 06/21/2022 12:33:54 06/21/20 22 06/21/2022 urina lysis , dipst ick Unknown Analyte negati ve Not Available El912_kekscywoleksandr siegel [address], [place], [address], 06/21/2022 12:33:54 06/21/20 22 06/21/2022 urina lysis , dipst ick Unknown Analyte 0.2 Not Available Kw730_opttv surinder siegel [address], [place], [address], 06/21/2022 12:33:54 06/21/20 22 06/21/2022 urina lysis , dipst ick Unknown Analyte negati ve Not Available Nw016_khhkyzlluiza siegel [address], [place], [address], 06/21/2022 12:33:54 06/21/20 22 06/21/2022 urina lysis , dipst ick Unknown Analyte large Not Available [id number]_hqlio surinder siegel [address], [place], [address], 06/21/2022 12:33:54 06/21/20 22 06/21/2022 urina lysis , dipst ick Unknown Analyte pale yellow Not Available Yw703_lphflae le_edina [address] [facility] [address], [place], [address], 06/21/2022 12:33:54 06/21/20 22 06/21/2022 urina lysis , dipst ick Unknown Analyte clear Not Available [address] surinder siegel [address] [facility] [address], [place], [address], 06/21/2022 12:33:54 09/12/19 23 09/11/2022 bacte rial vagin osis + vagin itis panel , vagin al gardnerella positi ve negati ve Not Available [address], [place], [address], 09/11/2022 10:20:13 09/12/19 23 09/11/2022 bacte rial vagin osis + vagin itis panel , vagin al trichomonas negati ve negati ve Not Available [address], [place], [address], 09/11/2022 10:20:13 09/12/19 23 09/11/2022 bacte rial vagin osis + vagin itis panel , vagin al judi negati ve negati ve Not Available [address], [place], [address], 09/11/2022 10:20:13 02/02/20 23 02/01/2023 bacte rial vagin osis + vagin itis panel , vagin al gardnerella positi ve negati ve Not Available [id number]_nmcbnzd [address], [place], [address], 02/01/2023 10:14:43 02/02/20 23 02/01/2023 bacte rial vagin osis + vagin itis panel , vagin al trichomonas negati ve negati ve Not Available Vv527_mclxfgk[address], [place], [address], 02/01/2023 10:14:43 02/02/20 23 02/01/2023 bacte rial vagin osis + vagin itis panel , vagin al judi negati ve negati ve Not Available [id number], [place], [address], 02/01/2023 10:14:43 06/28/19 24 06/28/2023 GYNEC OLOGI C CYTOL OGY (PAP SMEAR ) gynecologic cytology see result s below Not Available [address], [place], [address], 07/03/2023 18:21:38 06/28/19 24 06/28/2023 HPV HIGH RISK TYPES DNA CERVI ZEE other HR HPV negati ve negati ve Not Available [address], [place], [address], 07/03/2023 18:22:42 06/28/19 24 06/28/2023 HPV HIGH RISK TYPES DNA CERVI ZEE HPV16 DNA negati ve negati ve Not Available [address], [place], [address], 07/03/2023 18:22:42 06/28/19 24 06/28/2023 HPV HIGH RISK TYPES DNA CERVI ZEE HPV18 DNA negati ve negati ve Not Available [address], [place], [address], 07/03/2023 18:22:42 06/28/19 24 06/28/2023 HPV HIGH RISK TYPES DNA CERVI ZEE final diagnosis see note below Not Available [address], [place], [address], 07/03/2023 18:22:42 08/14/19 24 08/14/2023 bacte rial vagin osis + vagin itis panel , vagin al gardnerella negati ve negati ve Not Available [id number], [place], [address], 08/14/2023 15:50:32 08/14/19 24 08/14/2023 bacte rial vagin osis + vagin itis panel , vagin al trichomonas negati ve negati ve Not Available [address], [place], [address], 08/14/2023 15:50:32 08/14/19 24 08/14/2023 bacte rial vagin osis + vagin itis panel , vagin al judi positi ve negati ve Not Available [address], [place], [address], 08/14/2023 15:50:32 06/30/19 23 06/30/2022 lay lette r No observ ation record ed. TAVON [id number], [place], [address], 06/30/2022 19:26:22 06/30/19 23 06/30/2022 MAMMO , scree luther, tomos ynthe sis, bilat eral No observ ation record ed. [email or web address] [id number], [place], [address], 06/30/2022 14:00:00 06/30/19 24 06/30/2023 MAMMO , scree luther, tomos ynthe sis, bilat eral No observ ation record ed. [email or web address] [id number], [place], [address], 07/02/2023 09:27:15 06/30/19 24 06/30/2023 lay lette r No observ ation record ed. TAVON [id number] [address], [place], [address], 07/05/2023 10:19:03 Result Notes Documentation Provider Name and Address Organization Details Recorded Time Mammo, Screening, Tomosynthesis, Bilateral : Mammogram Screening Mammogram Type: 3D Bilateral Radiological Classification: Bi-Rads 2 - Benign Findings ACR Category: c-Heterogeneously dense, may obscure small masses Followup planned: Screening mammogram one year Sinan flaherty [place] - [facility] [employer] 07/02/2023 09:27:15 Problems No Known Problems Procedures Surgical History Date Name Laterality Status Provider Name and Address Organization Details Recorded Time 06/28/19 24 Date of Last Pap Smear completed Becyk flaherty [place] - [facility] [employer] 07/05/2023 10:40:34 06/22/20 22 Date of Last Mammogram completed Tammy flaherty [place] - [facility] [employer] 08/14/2023 15:24:26 06/21/20 22 IUD Removal Procedure Note ([facility]) completed ANA MOLINA, THIAGO [address] [facility], [place], [address], [place] - [facility] [employer] 06/23/2022 12:17:41 01/01/20 20 Other completed Ana Maria flaherty [place] - [facility] [employer] 02/28/2022 10:05:39 12/24/19 20 Cholecystectomy completed Jackeline Will null, [place] - [facility] [employer] 09/23/2020 11:30:12 Insert intrauterine device completed Ana Weldon null, [place] - [facility] [employer] 02/28/2022 10:04:49 Imaging Results Imaging Date Name Status LastModified by Organiz ation Details LastModified Time 06/30/2022 lay letter completed SANDSTON [id number]_gtwrjhqb e_b [address], [address], 06/30/2022 19:26:22 06/30/2022 MAMMO, screening, tomosynthesis, bilateral completed [email or web address] Zb311_qzoaoxcsz_h [address], [address], 06/30/2022 14:00:00 06/30/2023 MAMMO, screening, tomosynthesis, bilateral completed [email or web address] Ma440_wojezeuml_j [address], [address], 07/02/2023 09:27:15 06/30/2023 lay letter completed SANDSTON [id number]_bqlpwbjy e_b [address], [address], 07/05/2023 10:19:03 Procedure Notes None recorded. Medical Equipment None Reported. Allergies Allergen ID Allergen Name Allergen Category Reaction Reaction Severity Criticality Documentation Date Start Date Code Code System Note Provider Name and Address Organization Details Recorded Time 268376 nitrofura ntoin medicatio n Not available Not available Not available 01/30/2020 7454 RxNorm *Onse t: 4 *Note : 04/28 - liver issue s Not Available [facility] 16:58:51 Medications Name Sig Start Date Stop [...] completed Not Available Not Available Not Available 1.5 (28) 1.5 mg-30 mcg (21)/75 mg (7) [...] Available Not Available Vitals Date Recorded Body weight Body mass index (BMI) Body height Systolic blood pressure Diastolic blood pressure Provider Name and Address Organization Details Last Updated DateTime 02/28/2022 44470.07 g 28 kg/m2 180.34 cm 120 mm[Hg] 88 mm[Hg] SHAE Chatterjee [employer] 2 10:08:56 Date Recorded Body height Body mass index (BMI) Body weight Systolic blood pressure Diastolic blood pressure Provider Name and Address Organization Details Last Updated DateTime 06/21/2022 180.34 cm 29.1 kg/m2 62106.09 g 144 mm[Hg] 90 mm[Hg] SHAE Chatterjee [employer] 2 12:21:41 Date Recorded Body height Body mass index (BMI) Body weight Systolic blood pressure Diastolic blood pressure Provider Name and Address Organization Details Last Updated DateTime 09/11/2022 180.34 cm 30.1 kg/m2 86237.95 g 130 mm[Hg] 85 mm[Hg] Joyce Munoz (TERMED) SHAE flaherty [employer] 3 10:04:16 Date Recorded Body height Body mass index (BMI) Body weight Systolic blood pressure Diastolic blood pressure Provider Name and Address Organization Details Last Updated DateTime 02/01/2023 180.34 cm 30.8 kg/m2 159877.4 8 g 140 mm[Hg] 80 mm[Hg] Ana Maria Leyvanaunjustice flaherty [facility] [employer] 3 09:48:45 Date Recorded Body height Body mass index (BMI) Body weight Systolic blood pressure Diastolic blood pressure Provider Name and Address Organization Details Last Updated DateTime 06/28/2023 180.34 cm 29.7 kg/m2 60732.17 g 138 mm[Hg] 88 mm[Hg] Ana Maria Leyvanaunjustice flaherty SHAE [facility] [employer] 4 10:06:57 Date Recorded Body height Body mass index (BMI) Body weight Systolic blood pressure Diastolic blood pressure Provider Name and Address Organization Details Last Updated DateTime 08/14/2023 180.34 cm 30.1 kg/m2 78277.95 g 132 mm[Hg] 84 mm[Hg] Tammy flaherty [facility] [employer] 4 15:28:58 Date Recorded Body height Body mass index (BMI) Body weight Systolic blood pressure Diastolic blood pressure Provider Name and Address Organization Details Last Updated DateTime 05/21/2017 180.4416 cm 32.78 kg/m2 900486.2 0695 g 138 mm[Hg] 84 mm[Hg] Not Available [facility] 0 08:43:57 Date Recorded Body mass index (BMI) Body height Body weight Systolic blood pressure Diastolic blood pressure Provider Name and Address Organization Details Last Updated DateTime 08/21/2014 29.99 kg/m2 180.4416 cm 81706.35 955 g 118 mm[Hg] 74 mm[Hg] Not Available [facility] 0 08:43:57 Date Recorded Body weight Body mass index (BMI) Body height Systolic blood pressure Diastolic blood pressure Provider Name and Address Organization Details Last Updated DateTime 04/25/2018 80148.10 0141 g 26.83 kg/m2 180.4416 cm 122 mm[Hg] 84 mm[Hg] Not Available [facility] 0 08:43:57 Date Recorded Body weight Body mass index (BMI) Body height Systolic blood pressure Diastolic blood pressure Provider Name and Address Organization Details Last Updated DateTime 04/28/2019 47993.32 741 g 26.92 kg/m2 180.4416 cm 130 mm[Hg] 80 mm[Hg] Not Available [facility] 0 08:43:57 Date Recorded Body height Body weight Body mass index (BMI) Systolic blood pressure Diastolic blood pressure Provider Name and Address Organization Details Last Updated DateTime 01/03/2016 180.4416 cm 968915.0 6036 g 31.8 kg/m2 126 mm[Hg] 80 mm[Hg] Not Available [facility] 0 08:43:57 Date Recorded Body mass index (BMI) Body height Body weight Systolic blood pressure Diastolic blood pressure Provider Name and Address Organization Details Last Updated DateTime 07/21/2015 32.36 kg/m2 180.4416 cm 290354.4 2984 g 138 mm[Hg] 72 mm[Hg] Not Available [facility] 0 08:43:57 Date Recorded Body weight Body mass index (BMI) Body height Systolic blood pressure Diastolic blood pressure Provider Name and Address Organization Details Last Updated DateTime 05/24/2015 757380.6 5273 g 31.94 kg/m2 180.4416 cm 126 mm[Hg] 86 mm[Hg] Not Available [facility] 0 08:43:57 Date Recorded Body height Body mass index (BMI) Body weight Systolic blood pressure Diastolic blood pressure Provider Name and Address Organization Details Last Updated DateTime 09/22/2014 180.4416 cm 30.68 kg/m2 20971.32 14 g 122 mm[Hg] 80 mm[Hg] Not Available [facility] 0 08:43:57 Date Recorded Body height Body mass index (BMI) Body weight Systolic blood pressure Diastolic blood pressure Provider Name and Address Organization Details Last Updated DateTime 04/23/2017 180.4416 cm 32.19 kg/m2 894550.6 5492 g 116 mm[Hg] 78 mm[Hg] Not Available [facility] 0 08:43:57 Date Recorded Body weight Body mass index (BMI) Body height Systolic blood pressure Diastolic blood pressure Provider Name and Address Organization Details Last Updated DateTime 09/23/2020 10301.52 g 26.3 kg/m2 180.34 cm 132 mm[Hg] 86 mm[Hg] SHAE Pandya - [employer] 1 11:29:40 Social History Question Answer Notes LastModified by Organizat ion Details LastModified Time Tobacco Smoking Status Never Smoker SHAE Pandya [employer] 09/16/2020 08:19:49 Do You Have An Advance Directive? No [email or web address] Information not available 06/28/2023 What Is Your Level Of Alcohol Consumption? Occasional Former [email or web address] Information not available 09/23/2020 What Is Your Level Of Caffeine Consumption? Occasional 0-1c/wk [email or web address] Information not available 06/28/2023 Which Illicit Or Recreational Drugs Have You Used? 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 Information not available 06/28/2023 Children's Names/ Elmo/[email or web address] Information not available 06/21/2022 History Of Domestic Violence No Information not available 06/21/2022 Spouse/Partners Name Goyo burnette Information not available 09/16/2020 Marital Status Informatio n not available 06/28/2023 What Is [...] Medical History Condition Response GI- Hemorrhoids Y GI- Reflux/Ulcers Y Dermatology-Eczema/Psoriasis Y Rheumatology- Autoimmune Disease Y GI- Liver Disease/Hepatitis GI- Gallbladder Disease Y Rheumatology- Arthritis Y [...] Recorded Time Tdap 01/12/2015 completed Not Available [facility] 01:08:36 Influenza, seasonal, injectable, preservative free 03/05/2015 completed Not Available [facility] 4 15:23:37 Influenza, seasonal, injectable 08/21/2014 completed Not Available [facility] 08/14/2023 15:23:37 Influenza, seasonal, injectable 04/28/2019 completed Not Available [facility] 08/14/2023 15:23:37 influenza, injectable, quadrivalent, preservative free 04/25/2018 completed Not Available [facility] 4 15:23:37 Influenza, injectable, MDCK, preservative free 03/25/2016 completed SHAE Pandya - [employer] 06/22/2022 08:38:55 Past Encounters Encounter ID Performer Location Encounter Start Date Encounter Closed Date Diagnosis/Indication Diagnosis SNOMED-CT Code [id number] LIEN ENGLISH MD [id number] [facility] [address] [facility], [address] [place] [address] 09/23/2020 11:07:18 09/23/2020 12:05:47 Gynecologic examination [id number] [facility] ion care management 500466586 Diabetes m ellitus screening 093955161 Cholesterol screening 27 0542155 Rheumatoid arthritis 698 83890 [id number] MADDIE FLORES- [id number] [facility] [address] [facility], [address] [place] [address] 02/28/2022 10:03:19 02/28/2022 11:05:25 Gynecologic examination [id number] ANA Lary MOLINA CNM [id number] [facility] [address] [facility], [address] [place] [address] 06/21/2022 12:11:24 06/24/2022 14:24:23 Dysuria [id number] Removal of intrauterine device [id number] REINALDO WOOD MD [id number] [facility] [address] [facility], [address] [place] [address] 09/11/2022 09:58:12 09/11/2022 10:26:54 Contraception care management 530996017 Vaginal discharge 365011 006 Vaginal irritation 74564 6004 Vaginal odor 414193719 Bacterial vaginosis 4197 43652 [id number] ANA MOLINA CNM [id number] [facility] [address] [facility], [address] [place] [address] 02/01/2023 09:41:31 02/01/2023 10:47:15 Vaginal odor [id number] Vaginal pain [id number] Vaginal discharge [id number] ANA MOLINA CNM [id number] [place] [address] [facility], [address] [address] 06/28/2023 09:59:49 07/03/2023 11:08:30 Gynecologic examination [id number] ALTON HUTTON MD [id number] [place] [address] [facility], [address] [place] [id number] 08/14/2023 15:23:13 08/14/2023 16:00:44 Vaginal irritation [id number] Health Concerns Section Related Observation LastModified by Organization Detai ls LastModified Time None Recorded Concern Status LastModified by Organization Details LastModified Time None Recorded Advance Directives Directive N: Payers Encounter Date Sequence Insurance Name Policy Number Policy Tuttle Covered Member ID Tuttle Member ID Guarantor Name 08/14/2023 1 [facility] [id number] Monica Steeletock [id number] Monica Steeletock 06/28/2023 1 [facility] [id number] Monica Steeletock [id number] Monica Steeletock 02/01/2023 1 [employer]) [id number] Monica Steeletock [id number] Monica Steeletock 09/11/2022 1 [employer]) [id number] Monica Steeletock [id number] Monica Steeletock 06/21/2022 1 [employer] ([employer]) [id number] Monica Steeletock [id number] Monica Steeletock 02/28/2022 1 [employer] ([employer]) [id number] Monica Steeletock [id number] Monica Steeletock 09/23/2020 1 [place] [id number] Monica Steeletock [id number] Monica Oliva Notes Date Note Type Note Provider Name and Address Organization Details Recorded Time 09/23/2020 text/html HPI Notes: Paz méndez Premenopausal ([facility]) Reported by patient. Patient Relationship To Practice: established patient Current Medical History: no active medical problems Relevant Family History: family history of breast cancer; no family history of ovarian cancer; no family history of uterine cancer; no family history of colon cancer; no family history of blood clots/DVT Menstrual History: Frequency of Menses: rare; Mirena IUD Contraceptive Method: Current Method Used: levonorgestrel containing IUD--5 year; satisfied Sexually Active: Yes: same partner STI Screen: declines Health/Prevention: Multivitamins: yes; Vitamin D: yes; Adequate Calcium Intake: yes; Breast Self Exam: yes; Tobacco Use: no; Safe at home: yes; Mental Health Screen: normal Mammogram: not applicable Pap Smear +/- HPV Cotesting: due Thyroid/Lipid Screening: due Colonoscopy: not applicable Notes: Doing well. Normal TSH within the last year (had seen a doctor for hair loss). No symptoms of hypothyroidism. Discussed family history of DM and HLD, will do [place] [address] [facility],[address], [place], [address], [facility] [employer] 09/23/2020 11:58:45 02/28/2022 text/html HPI Notes: Paz méndez Premenopausal ([facility]) Reported by patient. Patient Relationship To Practice: established patient Current Medical History: no active medical problems Relevant Family History: family history of breast cancer; no family history of ovarian cancer; no family history of uterine cancer; no family history of colon cancer; no family history of blood clots/DVT Menstrual History: Frequency of Menses: rare; Mirena IUD Contraceptive Method: satisfied: Mirena Sexually Active: Yes: same partner STI Screen: declines Health/Prevention: Multivitamins: yes; Vitamin D: yes; Adequate Calcium Intake: yes; Breast Self Exam: yes; Tobacco Use: no; Safe at home: yes; Mental Health Screen: normal Mammogram: not applicable; start at age 40 Pap Smear +/- HPV Cotesting: up-to-date Thyroid/Lipid Screening: up-to-date Colonoscopy: not applicable Patient has: Primary Care Physician: yes Notes: Doing well. Son starts 1st grade today. Discussed hx of UTIs, usually goes to [facility]. About 3 culture confirmed UTIs in the past year, has had to have abx changed after culture results d/t resistance. No current sx. [facility] [address], [place], [address], [facility] [employer] 02/28/2022 10:37:19 06/21/2022 text/html HPI Notes: Here for IUD removal Reports urinary frequency, dysuria and urgency. Has not been exposed to any new personal care products or chemicals. Same sexual partner, . History of multiple UTI's in the last 6 months, discussed f/u with urology. ANA MOLINA, NOEMY [address] [facility],[address], [place], [address], [facility] [employer] 06/23/2022 12:21:53 09/11/2022 text/html HPI Notes: Pt is here concerned about a yeast infection. Pt feels she has had yeast infection symptoms for a few months. Did a telehealth elsewhere 1 mo ago and was rx'd with diflucan x 2 pills. [place] better x 1 week but then sx returned. Reports increased discharge which is green/yellow, burning, burning with intercourse, odor, itch. No UTI sx. No recent antibx. Same partner, (). Pt also reports her is having a vasectomy 10/2022. Pt had her IUD removed 05/2022. Using condoms. Asks for OCPs until has his vasectomy and post op check. Did well on OCPs in past. Risks and benefits discussed. Borderline BP today. Pt will follow BPs at home as has a cuff. Parameters to call [place] [address], [place], [address], [facility] [employer] 09/11/2022 11:37:11 02/01/2023 text/html HPI Notes: Vagin al/ Vulvar Problem ([facility]) Reported by patient. Referred By: self * Location: external; vaginal * Quality: discharge; pain; irritation * Severity: moderate * Duration: 1 months * Timing: Onset: gradual; intermittent * Context: premenopausal; previous vaginitis * Associated Signs & Symptoms: no fever/chills; no cramps; no tearing pain; no stabbing pain; no urinary symptoms; no urinary incontinence; no vulvar lesion; no anal lesions; odor; no itching; burning; no abnormal bleeding; painful intercourse * Modifying Factors (Symptomatic): unchanged with soaps; unchanged with detergents; unchanged with urination; unchanged with bowel movements Notes: Noticed symptoms about 1 month ago. Hx of BV in August 2022 Has not been exposed to any new chemicals or personal care products. Same partner, . ANA MOLINA CNM [address] [facility] [address], [place], [address], [facility] [employer] 02/01/2023 10:20:44 06/28/2023 text/html HPI Notes: Paz l Premenopausal ([facility]) Reported by patient. Patient Relationship To Practice: established patient Current Medical History: active medical problems stable Relevant Family History: family history of breast cancer; no family history of ovarian cancer; no family history of uterine cancer; no family history of colon cancer; no family history of blood clots/DVT Menstrual History: Frequency of Menses: monthly; Duration of Flow: 4 days; Quantity of Flow: moderate Contraceptive Method: satisfied: vasectomy Sexually Active: Yes: spouse STI Screen: declines Health/Prevention: Exercise: yes; Multivitamins: yes; Vitamin D: yes; Adequate Calcium Intake: yes; Tobacco Use: no; Safe at home: yes; Urinary Incontinence: no; Mental Health Screen: normal Mammogram: up-to-date Pap Smear +/- HPV Cotesting: due Thyroid/Lipid Screening: up-to-date Patient has: Primary Care Physician: yes; 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 Pap smear due ANA MOLINA CNM [address], [place], [address], [facility] [employer] 06/30/2023 17:21:06 08/14/2023 text/html HPI Notes: Devyn kinney presents with concerns about vaginal/vulvar symptoms. She [...] any concerns 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 Status 09/17/19 21 1 CLOSED Fetus Data First Name Last Name Admitted to NICU Weight (g) Sex Living Outcome Pediatric Complications Fetus ID Race Codes Race Delivery Type M Full Term [id number] German Calculation Initial German Date Initial Exam Date Initial Exam Provider Initial Ultrasound Date Last Menstrual Period Date Ultra Sound Weeks Gestation 0 Eighteen To Twenty Week German Update Ultra Sound Date Fundal Height At Umbil Quickening Date Ultra Sound Latest Weeks Gestation Final German Confirmed By Final German Confirmed Date Final German Date Ultra Sound Latest Days Gestation 0 0 Menstrual History Last Menstrual Date Menses Monthly On Bcp Conception Prior Menses Frequency Hcg Plus Date Menarche Onset Age Delivery Information Delivery Date Delivery Type Labor Anesthesia Weeks Gestation Incision Type Labor Labor Length Hrs Delivered By Post Complications Tubal Sterilization Discharge Date Comments 5 38 IOL Secondary To Gestation al Hypertens ion - [place] Discharge Information Feeding Method Contraceptive Method Maternal HG B and HCT Levels
--- OUTSIDE RECORDS SUMMARY | 2023-10-05 10:08 | XMS_ITS | Clinical Summary ---
Author Name Unknown Organization Over 40 Females [facility] [employer] Address [place], [place] [address] Care Team Providers Care Soils Analyst Name Role Phone [facility] Primary Care Provider + Allergies Active Allergy Reactions Criticality Noted Date Comments Nitrofurantoin Monohyd/M-Cryst Jaundice 06/15 Medications Medication Sig Dispensed Refills Start Date End Date Status aluminum chloride (HYPERCARE) 20 % external solution Apply topically to affected area(s) one time if needed for Other (Specify). 0 02/24/2011 Active meloxicam (MOBIC) 7.5 mg tablet Take 1 tablet by mouth once daily. Dose unknown 0 03/12/2017 Active methotrexate, PF, 7.5 mg/0.15 mL atIn Inject subcutaneous. Unknown dose 0 03/12/2017 Active folic acid 800 mcg tablet Take 1 tablet by mouth once daily. Unknown dose 0 03/12/2017 Active omeprazole (PRILOSEC) 40 mg Delayed-Release capsule Take 1 capsule by mouth once daily. 0 03/12/2017 Active Active Problems Problem Noted Date Diagnosed Date Hyperhydrosis disorder Immunizations Name Administration Dates Next Due Influenza, ccIIV3 (Age >=18 Years) 03/25/2016 Tdap 01/12/2015 Family History Medical History Relation Name Comments Good Health Father Other Father ITP Hypertension Mother anxiety Other Mother Relation Name Status Comments Father Mother Social History Tobacco Use Types Packs/Day Years Used Date Smoking Tobacco: Never Smokeless Tobacco: Never Tobacco Cessation:Counseling Given: Yes Alcohol Use Standard Drinks/Week Comments Yes 0 (1 standard drink = 0.6 oz pur e alcohol) Rarely Sex and Gender Information Value Date Recorded Sex Assigned at Not on file Gender Identity Not on file Sexual Orientation Not on file Obstetrics History Last Filed Vital Signs Vital Sign Reading Time Taken Comments Blood Pressure 106/78 03/12/2017 11:31 AM CDT Pulse 74 03/12/2017 11:31 AM CDT Temperature 36.1 ??C (97 ??F) 03/12/2017 11: 31 AM CDT Respiratory Rate 14 03/12/2017 11:3 1 AM CDT Oxygen Saturation 100% 03/12/2017 11: 31 AM CDT RA Inhaled Oxygen Concentration - - Weight 104.6 kg (230 lb 9.6 oz) 017 11:31 AM CDT Height 180.3 cm (5' 11) 03/12/2017 11: 31 AM CDT Body Mass Index 32.16 03/12/2017 11:31 AM CDT Plan of Treatment Health Maintenance Due Date Last Done Comments HIV for age 15-65 1997 Pap test for age 21-65 08/09/2013 08/09/2010 Depression screening for age 12+ 06/15/2017 06/15/2016 BMI (ht and wt on same day) for age 18+ 03/12/2018 03/12/2017, 06/15/2016 COVID-19 vaccine series (2022-24 season) 2023 Influenza for age 9-49 02/24/2024 03/25/2016 Tetanus booster 01/12/2025 01/12/2015 Hepatitis C screening for ag e 18-79 Completed 06/26/2013 Tdap Completed 01/12/2015 Pneumococcal series for age 6-64 Aged Out No longer eligible b ased on patient's age to complete this topic Procedures Procedure Name Priority Date/Time Associated Diagnosis Comments ACUTE HEPATITIS PANEL Routine 06/26/2013 11:54 AM 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 Jaundice HM PAP SMEAR Routine 08/09/2010 from Last 3 Months or Most Recently Relevant to Health Maintenance Results * ACUTE HEPATITIS PANEL (06/26/2013 11:54 AM 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) HBSAG Non-reacti ve [facility] IGM ANTI HBC Non-reacti ve [facility] IGM ANTI HAV Non-reacti ve [facility] ANTI HCV Non-reacti ve [facility] Blood specimen (specimen) BLOOD SPECIMEN / Unknown 06/26/2013 11:54 AM 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
--- OUTSIDE RECORDS SUMMARY | 2023-10-05 10:08 | XMS_ITS | Continuity of Care Document ---
Author Name Unknown Organization [facility] Address [address] [place] [address] Phone Care Team Providers Care Manager Research Name Role Phone Ravinder Montes MD Unavailable Unavailable Allergies, Adverse Reactions, Alerts Substance Reaction Status Criticality minocycline HivesHives Active No Information nitrofurantoin liver issues, jaundice Active No Information Medications Medication Instructions Dosage Effective Dates (start - stop) Status Comments HYDROXYCHLOROQUINE 200MG TABLETS TAKE 1 TABLET BY MOUTH DAILY FOR 2 WEEKS, THEN TWICE DAILY - Active MELOXICAM 15MG TABLETS TAKE 1 TABLET BY MOUTH EVERY DAY - Active Plaquenil 200 mg tablet take 1 Tablet by oral route every day for two weeks and then 2 times a day 200 MG - No Longer Active Procedures Procedure Date Office/Outpatient Visit, Est Routine Venipuncture Assay Of Serum Albumin Assay Of Creatinine Transferase (Ast) (Sgot) Alanine Amino (Alt) (Sgpt) CReactive Protein Complete Cbc WAuto Diff Wbc Routine Venipuncture Assay Of Serum Albumin Assay Of Creatinine Transferase (Ast) (Sgot) Alanine Amino (Alt) (Sgpt) CReactive Protein Complete Cbc WAuto Diff Wbc Office/Outpatient Visit, Est Routine Venipuncture Assay Of Serum Albumin Assay Of Creatinine Transferase (Ast) (Sgot) Alanine Amino (Alt) (Sgpt) CReactive Protein Complete Cbc WAuto Diff Wbc Unlisted E&M Service No Show Office/Outpatient Visit, Est Routine Venipuncture CReactive Protein Assay Of Serum Albumin Assay Of Creatinine Transferase (Ast) (Sgot) Alanine Amino (Alt) (Sgpt) Complete Cbc WAuto Diff Wbc Office/Outpatient Visit, Est Routine Venipuncture Assay Of Serum Albumin Assay Of Creatinine Transferase (Ast) (Sgot) Alanine Amino (Alt) (Sgpt) CReactive Protein Complete Cbc WAuto Diff Wbc Office/Outpatient Visit, Est Routine Venipuncture Assay Of Serum Albumin Assay Of Creatinine Transferase (Ast) (Sgot) Alanine Amino (Alt) (Sgpt) CReactive Protein Complete Cbc WAuto Diff Wbc Office/Outpatient Visit, Est Routine Venipuncture Assay Of Serum Albumin Assay Of Creatinine Transferase (Ast) (Sgot) Alanine Amino (Alt) (Sgpt) CReactive Protein Complete Cbc WAuto Diff Wbc Routine Venipuncture Assay Of Serum Albumin Assay Of Creatinine Transferase (Ast) (Sgot) Alanine Amino (Alt) (Sgpt) CReactive Protein Complete Cbc WAuto Diff Wbc Office/Outpatient Visit, Est Routine Venipuncture Rbc Sed Rate, Nonautomated Assay Of Serum Albumin Assay Of Creatinine Transferase (Ast) (Sgot) Alanine Amino (Alt) (Sgpt) CReactive Protein Dna Antibody, Single [place] Dna Antibody, [place] Nuclear Antigen Antibodies Antinuclear Antibodies CCP Antibody Rheumatoid Factor, IGM Rheumatoid Factor, IGG, IGA Complete Cbc WAuto Diff Wbc Office/Outpatient Visit, Est Office/Outpatient Visit, Est Routine Venipuncture Assay Of Serum Albumin Assay Of Creatinine Transferase (Ast) (Sgot) Alanine Amino (Alt) (Sgpt) CReactive Protein Dna Antibody, Single [place] Dna Antibody, [place] Nuclear Antigen Antibodies Antinuclear Antibodies CCP Antibody Rheumatoid Factor, IGM Rheumatoid Factor, IGG, IGA Complete Cbc WAuto Diff Wbc Office/Outpatient Visit, Est Routine Venipuncture Complete Cbc WAuto Diff Wbc CReactive Protein Assay Of Serum Albumin Assay Of Creatinine Transferase (Ast) (Sgot) Alanine Amino (Alt) (Sgpt) Office/Outpatient Visit, Est Routine Venipuncture Complete Cbc WAuto Diff Wbc CReactive Protein Assay Of Serum Albumin Assay Of Creatinine Transferase (Ast) (Sgot) Alanine Amino (Alt) (Sgpt) Office/Outpatient Visit, Est Routine Venipuncture Complete Cbc WAuto Diff Wbc CReactive Protein Assay Of Serum Albumin Assay Of Creatinine Transferase (Ast) (Sgot) Alanine Amino (Alt) (Sgpt) Routine Venipuncture Complete Cbc WAuto Diff Wbc CReactive Protein Assay Of Serum Albumin Assay Of Creatinine Transferase (Ast) (Sgot) Alanine Amino (Alt) (Sgpt) Office/Outpatient Visit, Est Routine Venipuncture Complete Cbc WAuto Diff Wbc CReactive Protein Assay Of Serum Albumin Assay Of Creatinine Transferase (Ast) (Sgot) Alanine Amino (Alt) (Sgpt) Office/Outpatient Visit, Est Routine Venipuncture Complete Cbc WAuto Diff Wbc CReactive Protein Assay Of Serum Albumin Assay Of Creatinine Transferase (Ast) (Sgot) Alanine Amino (Alt) (Sgpt) Office/Outpatient Visit, Est Office/Outpatient Visit, Est Routine Venipuncture Specimen Handling Dna Antibody, Single [place] Dna Antibody, [place] Nuclear Antigen Antibodies Complete Cbc WAuto Diff Wbc Rbc Sed Rate, Nonautomated Assay Of Serum Albumin Assay Of Creatinine Transferase (Ast) (Sgot) Alanine Amino (Alt) (Sgpt) CReactive Protein Antinuclear Antibodies CCP Antibody Lyme Disease Antibody Rheumatoid Factor, IGM Rheumatoid Factor, IGG, IGA Advance Directives Directive Yes / No Effective Date File Name No Information Encounters Encounter Description Practice Location Reason(s) For Visit Diagnoses Date Provider Providers Copied on Encounter [facility] , [address], [place], [address], [place] tel:[phone] [facility] , No Information 4 Simon Castellon. [facility] [address], [place], [address], [place]. tel:[phone] [facility] , [address], [place], [address], [place] tel:[phone] [facility] No Information 3 Simon Castellon. [facility] [address], [place], [address], [place]. tel:[phone] Office/Outpa tient Visit, Est [facility] , [address], [place], [address], [place] tel:[phone] [facility] , Follow Up of Seropositive rheumatoid arthritis (chief complaint) Rheumatoid arthritis with rheumatoid factor of multiple sites without organ or systems involvementL annia term (current) use of non-steroida l anti-inflamm atories (NSAID)Other termite treater (current) drug therapy 3 Simon Castellon. [facility] [address], [place], [address], [place]. tel:[phone] Referring Provider: Ravinder Rene, [facility] [address], [place], [address]. tel:[phone] [facility] , [address], [place], [address], [place] tel:[phone] [facility] , No Information 3 Simon Castellon. [facility] [address], [place], [address], [place]. tel:[phone] Referring Provider: Ravinder Rene, [facility] [address], [place], [address]. tel:[phone] Office/Outpa tient Visit, Est [facility] , [address], [place], [address], [place] tel:[phone] [facility] , Follow Up of Seropositive rheumatoid arthritis (chief complaint) Rheumatoid arthritis with rheumatoid factor of multiple sites without organ or systems involvementO ther mcc (current) drug therapyLong term (current) use of non-steroida l anti-inflamm atories (NSAID) 2 Simon Castellon. [facility] [address], [place], [address], [place]. tel:[phone] Referring Provider: Ravinder Rene, [facility] [address], [place], [address]. tel:[phone] Unlisted E&M Service No Show [facility] , [address], [place], [address], [place] tel:[phone] [facility] , No Information 2 Simon Castellon. [facility] [address], [place], [address], [place]. tel:[phone] Referring Provider: Ravinder Rene, [facility] [address], [place], [address]. tel:[phone] Office/Outpa tient Visit, Est [facility] , [address], [place], [address], [place] tel:[phone] [facility] , Follow Up of Seropositive rheumatoid arthritis (chief complaint) Rheumatoid arthritis with rheumatoid factor of multiple sites without organ or systems involvementO ther termite treater (current) drug therapyLong term (current) use of non-steroida l anti-inflamm atories (NSAID) 1 Simon Castellon. [facility] [address], [place], [address], [place]. tel:[phone] Referring Provider: Ravinder Rene, [facility] [address], [place], [address]. tel:[phone] Office/Outpa tient Visit, Est [facility] , [address], [place], [address], [place] tel:[phone] [facility] , Follow Up of Seropositive rheumatoid arthritis (chief complaint) Rheumatoid arthritis with rheumatoid factor of multiple sites without organ or systems involvementD ry eye syndrome of bilateral lacrimal glandsOther termite treater (current) drug therapyLong term (current) use of non-steroida l anti-inflamm atories (NSAID) 1 Simon Castellon. [facility] [address], [place], [address], [place]. tel:[phone] Referring Provider: Ravinder Rene, [facility] [address], [place], [address]. tel:[phone] Office/Outpa tient Visit, Est [facility] , [address], [place], [address], [place] tel:[phone] [facility] , Follow Up of Seropositive rheumatoid arthritis (chief complaint) Rheumatoid arthritis with rheumatoid factor of multiple sites without organ or systems involvementO ther termite treater (current) drug therapyLong term (current) use of non-steroida l anti-inflamm atories (NSAID) 1 Simon Castellon. [facility] [address], [place], [address], [place]. tel:[phone] Referring Provider: Ravinder Rene, [facility] [address], [place], [address]. tel:[phone] Office/Outpa tient Visit, Est [facility] , [address], [place], [address], [place] tel:[phone] [facility] , Follow Up of Seropositive rheumatoid arthritis (chief complaint) Rheumatoid arthritis with rheumatoid factor of multiple sites without organ or systems involvementL annia term (current) use of non-steroida l anti-inflamm atories (NSAID) 0 Simon Masters [facility] [address], [place], [address], [place]. tel:[phone] Referring Provider: Ravinder Rene, [facility] [address], [place], [address]. tel:[phone] [facility] , [address], [place], [address], [place] tel:[phone] [facility] , No Information 0 Simon Masters [facility] [address], [place], [address], [place]. tel:[phone] Referring Provider: Ravinder Rene, [facility] [address], [place], [address]. tel:[phone] Office/Outpa tient Visit, Est [facility] , [address], [place], [address], [place] tel:[phone] [facility] , Follow Up of seropositive rheumatoid arthritis (chief complaint) Rheu arthritis w rheu factor mult site w/o org/sys involvNonsca rring hair lossLong term (current) use of non-steroida l non-inflam (NSAID) 9 Simon Castellon. [facility] [address], [place], [address], [place]. tel:[phone] Referring Provider: Ravinder Rene, [facility] [address], [place], [address]. tel:[phone] Office/Outpa tient Visit, Est [facility] , [address], [place], [address], [place] tel:[phone] [facility] , Follow Up of seropositive rheumatoid arthritis (chief complaint) [place] [facility]/o [place]/sys involvRash and other nonspecific skin eruptionOthe r termite treater (current) drug therapyLong term (current) use of non-steroida l non-inflam (NSAID) 9 Simon Castellon. [facility] [address], [place], [address], [place]. tel:[phone] Referring Provider: Ravinder Rene, [facility] [address], [place], [address]. tel:[phone] Office/Outpa tient Visit, Est [facility] , [address], [place], [address], [place] tel:[phone] [facility] , Follow Up of seropositive rheumatoid arthritis (chief complaint) Rheu arthritis w rheu factor mult site w/o org/sys involvDizzin essRaised antibody titer 9 Simon Castellon. [facility] [address], [place], [address], [place]. tel:[phone] Referring Provider: Ravinder Rene, [facility] [address], [place], [address]. tel:[phone] Office/Outpa tient Visit, Est [facility] , [address], [place], [address], [place] tel:[phone] [facility] , Follow Up of seropositive rheumatoid arthritis (chief complaint) Seropositive RA of multiple sites w/o organ involvementR ashOther termite treater drug therapyLong term use of NSAID 8 Simon Castellon. [facility] [address], [place], [address], [place]. tel:[phone] Referring Provider: Ravinder Rene, [facility] [address], [place], [address]. tel:[phone] Office/Outpa tient Visit, Est [facility] , [address], [place], [address], [place] tel:[phone] [facility] , Follow Up of seropositive rheumatoid arthritis (chief complaint) Seropositive RA of multiple sites w/o organ involvementO ther termite treater drug therapyLong term use of NSAID 0 7 Simon Castellon. [facility] [address], [place], [address], [place]. tel:[phone] Referring Provider: Ravinder Rene, [facility] [address], [place], [address]. tel:[phone] Office/Outpa tient Visit, Est [facility] , [address], [place], [address], [place] tel:[phone] [facility] , Follow Up of seropositive rheumatoid arthritis (chief complaint) Seropositive RA of multiple sites w/o organ involvementP ain in thoracic spineOther mcc drug therapyLong term use of NSAID Simon Castellon. [facility] [address], [place], [address], [place]. tel:[phone] Referring Provider: Ravinder Rene, [facility] [address], [place], [address]. tel:[phone] [facility] , [address], [place], [address], [place] tel:[phone] [facility] , No Information Simon Castellon. [facility] [address], [place], [address], [place]. tel:[phone] Referring Provider: Ravinder Rene, [facility] [address], [place], [address]. tel:[phone] Office/Outpa tient Visit, Est [facility] , [address], [place], [address], [place] tel:[phone] [facility] , Follow Up of seropositive rheumatoid arthritis (chief complaint) Seropositive RA of multiple sites w/o organ involvementO ther termite treater drug therapyLong term use of NSAID Simon Castellon. [facility] [address], [place], [address], [place]. tel:[phone] Referring Provider: Ravinder Rene, [facility] [address], [place], [address]. tel:[phone] Office/Outpa tient Visit, Est [facility] , [address], [place], [address], [place] tel:[phone] [facility] , Follow Up of seropositive rheumatoid arthritis (chief complaint) Seropositive RA of multiple sites w/o organ involvementO ther mcc drug therapyLong term use of NSAID Simon Castellon. [facility] [address], [place], [address], [place]. tel:[phone] Referring Provider: Ravinder Rene, [facility] [address], [place], [address]. tel:[phone] Office/Outpa tient Visit, Est [facility] , [address], [place], [address], [place] tel:[phone] [facility] , Follow Up of seropositive rheumatoid arthritis (chief complaint) Seropositive RA of multiple sites w/o organ involvementO ther mcc drug therapyLong term use of NSAID Simon Castellon. [facility] [address], [place], [address], [place]. tel:[phone] Referring Provider: Ravinder Rene, [facility] [address], [place], [address]. tel:[phone] Office/Outpa tient Visit, Est [facility] , [address], [place], [address], [place] tel:[phone] [facility] , Joint Pain (chief complaint) Inflammatory polyarthropa thy 7 Simon Castellon. [facility] [address], [place], [address], [place]. tel:[phone] Referring Provider: Ravinder Rene, [facility] [address], [place], [address]. tel:[phone] Family History Family Member Type Diagnosis Age At Onset Father Problem (finding) [facility] Payers Payer name Insurance type Covered alliance party ID Authoriza tiprasad(s) R [id number] Social History Type Description Quantity Date Captured Comments Sex Female Smoking Status No Information Chief Complaint And Reason For Visit No Information Reason For Referral Reason For Referral No Information History Of Present Illness Encounter Date Complaint History Of Prese nt Illness Follow Up of Seropos itive rheumatoid arthritis Follow Up of Seropos itive rheumatoid arthritis Follow Up of Seropos itive rheumatoid arthritis Follow Up of Seropos itive rheumatoid arthritis Follow Up of Seropos itive rheumatoid arthritis Follow Up of Seropos itive rheumatoid arthritis Follow Up of seropos itive rheumatoid arthritis Follow Up of seropos itive rheumatoid arthritis Follow Up of seropos itive rheumatoid arthritis Follow Up of seropos itive rheumatoid arthritis Follow Up of seropos itive rheumatoid arthritis Follow Up of seropos itive rheumatoid arthritis Follow Up of seropos itive rheumatoid arthritis Follow Up of seropos itive rheumatoid arthritis Follow Up of seropos itive rheumatoid arthritis Joint Pain Functional Status Date Functional Assessmen t No Information Instructions Date Instruction Additional Infor vicki She will have [employer] for monitoring medications and disease. Her most recent Plaquenil eye exam was on 01/08/23. That was unremarkable. Related to Other mcc (current) drug therapy See discussion above ???she is not taking the meloxicam regularly anymore. Related to alf (current) use of non-steroidal anti-inflammatories (NSAID) Although she had a f lare while taking a control pill regularly for a few months, that seems to be settling down now???she has only mild active synovitis on exam today. I did not recommend any change in the hydroxychloroquine. I am hoping that she will be able to back off use of the meloxicam over the next few months. I encouraged her to call if that is not the case. Related to Rheumatoid arthritis with rheumatoid factor of multiple sites without organ or systems involvement See discussion above ???she is not taking the meloxicam regularly anymore. Related to alf (current) use of non-steroidal anti-inflammatories (NSAID) She will have [facility] for monitoring medications and disease. Her most recent Plaquenil eye exam was on 01/13/2022. She reports that was unremarkable. Related to Other termite treater (current) drug therapy She feels like she i s doing reasonably well with her rheumatoid arthritis on the Plaquenil. As noted above, she has been able to discontinue use of meloxicam over the last several months. She does not have dramatically active synovitis on exam today. She also is not particularly interested in any additional treatment of her RA over and above the Plaquenil. She will stay on that same medication. Related to Rheumatoid arthritis with rheumatoid factor of multiple sites without organ or systems involvement She will have [facility] for monitoring medications and disease. Related to Other mcc (current) drug therapy Although the improve ment has not been dramatic to this point, she does feel a bit better on the hydroxychloroquine. There is still a good chance that she would see further improvement over the next few months of the hydroxychloroquine before symptoms start to plateau. I recommended continuing on her same regimen at least for another 6 months. She will call if symptoms worsen. Related to Rheumatoid arthritis with rheumatoid factor of multiple sites without organ or systems involvement She will have [facility] for monitoring medications and disease. Related to Other termite treater (current) drug therapy I agree that the uln ar deviation, particularly in the right hand, he is slowly progressing. She had does also still have some low-grade synovitis. I think it is reasonable to go back and try the Plaquenil. 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 She is not interested in any of the biologic medicines for rheumatoid arthritis at this point. She is aware of potential side effects of hydroxychloroquine. She will talk with her center line cutter operator when she sees him routinely next week about Plaquenil eye testing. Related to Rheumatoid arthritis with rheumatoid factor of multiple sites without organ or systems involvement I suspect that this is more allergy related but her underlying autoimmune disease could be playing a role. Again, she will discuss this with her center line cutter operator next week. Related to Dry eye syndrome of bilateral lacrimal glands She seems to be resp onding to the sulfasalazine relatively early in the course of starting that medication. Typically it takes up to 3 to 6 months to reach full benefit from that medication. She is tolerating it well. I did not recommend any change in that medication or in the meloxicam. Hopefully she will see further improvement over the next few months. Related to Rheumatoid arthritis with rheumatoid factor of multiple sites without organ or systems involvement She will have routin e laboratories today for monitoring medications and disease. Related to Other termite treater (current) drug therapy She tolerates the me loxicam without obvious side effects. Related to alf (current) use of non-steroidal anti-inflammatories (NSAID) She is doing a bit w orse with her inflammatory arthritis today compared to the last time I saw her approximately a year ago. I think it is time to get her started again on a disease modifying agent. She has failed trials of Plaquenil, minocycline, and methotrexate in the past. I recommended a trial of sulfasalazine starting at 500 mg twice daily and eventually increasing to 1000 mg twice daily. I discussed potential risks and benefits of that medication in detail with her and also provided her with literature regarding that medication. I will also refill her meloxicam. Related to Rheumatoid arthritis with rheumatoid factor of multiple sites without organ or systems involvement She tolerates the me loxicam well. She generally takes it every other day rather than daily. 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 I did not recommend any further evaluation or treatment of this at this time. I may want to refer her for dermatology evaluation if this becomes a worsening problem. Related to Nonscarring hair loss She continues to hav e mild symptoms of arthritis that are somewhat of a nuisance for her but not limiting. I don't think she is developing further deformity. I discussed the possibility of Arava, Xeljanz, or Olumiant (all oral medications by her request) for treating her arthritis but I did not recommend any of these at this time. Related to Rheu arthritis w rheu factor mult site w/o org/sys involv See discussion above regarding the minocycline. Related to Other [facility] (current) drug therapy The rash is complete ly resolved at this point and presumably was indeed related to the minocycline. She now has failed trials of methotrexate, sulfasalazine, Plaquenil, and minocycline. Arava or Xeljanz would be the only other oral DMARD's that I would recommend. As noted above, she would prefer not to start any additional medication at this time. Related to Rash and other nonspecific skin eruption Right now, she is do ing reasonably well with her rheumatoid arthritis despite being on only an NSAID. She would prefer not to add any additional medication for this at this time. She will stay on the meloxicam as currently prescribed. Related to Rheu arthritis w rheu factor mult site w/o org/sys involv Note that she did no t have classic rheumatoid arthritis from a serologic standpoint. Her rheumatoid factor was positive but she had a negative CCP antibody and had significant antinuclear antibodies. I'm going to recheck her antibody profile although she has not developed any other symptoms or physical findings to strongly suggest any other autoimmune disease. Related to Raised antibody titer I can't say that the re has been much change in her symptoms or physical findings since I last saw her more than a year ago. This makes it fairly clear that the methotrexate was not providing great benefit for her. She also did not feel that sulfasalazine has helped. She has already failed a previous trial of Plaquenil. I presented options of minocycline, leflunomide, or Xeljanz since she prefers to use an oral medication. We agreed that she will try minocycline and also resume meloxicam but used the meloxicam only on an as-needed basis. I did discuss potential risks and benefits of minocycline in detail with her. Related to Rheu arthritis w rheu factor mult site w/o org/sys involv The cause of this is not clear. I recommended followup with her primary physician for this. Related to Dizziness She mentions today t hat she occasionally feels like I would like to take a second meloxicam at night. I reminded her of the relative potency of meloxicam compared to medication such as ibuprofen or Aleve. I suggested that, if she needs something extra at night for pain, she use Tylenol. Related to alf use of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
== END 2023-10-01 07:43 | disposition home or self-care (01) ==
LOC: NFLDREF 10-05 10:05
PROVIDERS: PCP Family Medicine; Referring Provider Family Medicine; Visit Provider Family Medicine
DX: E55.9 Vitamin D deficiency, unspecified (principal); Z13.220 Encounter for screening for lipoid disorders; Z13.1 Encounter for screening for diabetes mellitus
CPT/HCPCS: 80061; 82306; 82947

== ENCOUNTER 2024-11-21 07:44 | Outpatient (CLI) | payer OTHER, SELFPAY ==
--- NOTE | 2024-11-21 08:00 | CRLHL7_ITS ---
For Patients: As a result of the Cures Act, medical imaging exams and procedure reports are released immediately into your electronic medical record. You may view this report before your referring provider. If you have questions, please contact your health care provider. Indication: CHRONIC SINUSITIS, RIGHT SIDE OF NOSE PLUGGED Technique: Performed without IV contrast Comparison: 09/01/2021 Findings: Frontal sinuses: Clear. Ethmoid sinuses: Clear. Maxillary sinuses: Clear. The maxillary sinus drainage pathways are patent on both sides. Sphenoid sinuses: Clear, including both sphenoethmoidal recesses. Nasal Cavity: Rightward deviation of the nasal septum with a small right-sided nasal septal spur. No delores bullosa. No nasal polyps. No TMJ abnormalities identified. The visualized portions of the orbits, intracranial contents and upper soft tissue neck are grossly negative. Impression: 1. Rightward deviation of the nasal septum. 2. Sinuses clear. Sinus drainage pathways are clear. Please note that all CT scans at this facility use dose modulation, iterative reconstruction, and/or weight-based dosing when appropriate to reduce radiation dose to as low as reasonably achievable. Dictated by Goyo Live MD @ 11/21/2024 10:58:24 AM (Electronically Signed)
== END 2024-11-21 07:45 | disposition home or self-care (01) ==
LOC: CT 07:45
PROVIDERS: PCP Family Medicine; Visit Provider Otolaryngology
DX: J32.9 Chronic sinusitis, unspecified (principal); J34.2 Deviated nasal septum
CPT/HCPCS: 70486

== ENCOUNTER 2025-03-27 08:55 | Day surgery (SDC) | payer OTHER, SELFPAY ==
[2025-03-27] VITALS (14 sets, daily range): BP systolic 129–145; BP diastolic 75–96; PULSE 69–95; RESP 14–16; TEMP 36.1–36.9; O2SAT 97–100; BMI 30.8
[2025-03-27] MEDS: LACTATED RINGERS 1000 ML 1,000 ML 100 ML IV (09:18)
[2025-03-27] MEDS: SODIUM CHLORIDE 0.9 % (FLUSH) 10 ML SYRINGE IVF (09:18)
[2025-03-27] MEDS: OXYMETAZOLINE 0.05% NASAL SPRAY 2 SPRAY NOSTRIL-B (09:30)
[2025-03-27 09:39] LABS: Ur HCG Qualitative* Negative (Negative)
[2025-03-27] MEDS: BUPIVACAINE 0.5%/EPINEPHRINE 0.9 MG (30.9 ML) INJECTION (10:45)
[2025-03-27] MEDS: AYR SALINE NASAL GEL 1 APPLIC NOSTRIL-B (10:49)
[2025-03-27] MEDS: MUPIROCIN 1 GM PACKET 1 APPLIC TOPICAL (10:55)
--- NOTE | 2025-03-27 11:45 | P.ANES_ITS ---
Anesthesia Charges Start Date/Time Anesthesia Start Date: 03/27/25 Anesthesia Start Time: 10:27 Stop Date/Time Anesthesia Stop Date: 03/27/25 Anesthesia Stop Time: 11:10 Coding CPT Codes CPT Codes: ANESTH NOSE/SINUS SURGERY - 21755 ([id number]) QK - SIDE SPLITTER 2-4 CNCRNT ANES PROC, QX - DOCTORATE OF CHIROPRACTIC SVC W/ MD MED DIRECTION, P2 - PATIENT W/MILD SYST DISEASE
--- NOTE | 2025-03-27 11:45 | W.ANESCHARGE ---
Anesthesia Charges Start Date/Time Anesthesia Start Date: 03/27/25 Anesthesia Start Time: 10:27 Stop Date/Time Anesthesia Stop Date: 03/27/25 Anesthesia Stop Time: 11:10 Coding CPT Codes CPT Codes: ANESTH NOSE/SINUS SURGERY - 21656 ([id number]) QK - PLASTER MACHINE TENDER 2-4 CNCRNT ANES PROC, QX - GRAIN INSPECTOR SVC W/ MD MED DIRECTION, P2 - PATIENT W/MILD SYST DISEASE
--- NOTE | 2025-03-27 11:54 | W.PM.ENTPROC ---
Procedure Note Date of procedure: 03/27/25 Procedure: Preoperative diagnosis nasal obstruction, nasal headache, deviated septum, left middle and bilateral inferior turbinate hypertrophy Postoperative diagnosis same Procedure is submucous partial resection inferior turbinates and left middle turbinate, nasal septoplasty Under general endotracheal anesthesia patient was prepped and draped usual fashion and the nose decongested injected. A right hemitransfixion incision was made. Left anterior and posterior tunnels were created. A vertical incision was made with the cartilage and a right posterior tunnel created. The posterior deflected portions of nasal septal bone were trimmed out and then removed trimmed recheck and straightened and returned to intraseptal space. A right anterior tunnel was also created this allowed the anterior septum to simply moved to midline without resection. The hemitransfixion was closed with 2 5 0 plain gut sutures. An incision was made along the inferolateral aspect of the left middle turbinate and the delores bone crushed with a [place] forceps. A stab incision was made in the anterior of the right inferior turbinate a tunnel created with a [place] dissector. Conservative anterior submucous resection was performed. The delores bone was outfractured and the Coblation 1 used to cauterize intramurally along the inferior 10% anteriorly for hemostasis. This was repeated on the left side in identical fashion. Silastic stents were secured with 3-0 nylon. Merocel packing was trimmed coated in Bactroban and 1/2 of pack placed on each side above above the stents. The patient procedure well was taken recovery in satisfactory condition. Blood loss was 30 mL. Surgeon: Idris Abel MD
[2025-03-27] MEDS: IBUPROFEN 400 MG TABLET PO (12:08)
--- NOTE | 2025-03-27 14:36 | P.ANES_ITS ---
Anesthesia Charges Start Date/Time Anesthesia Start Date: 03/27/25 Anesthesia Start Time: 10:27 Stop Date/Time Anesthesia Stop Date: 03/27/25 Anesthesia Stop Time: 11:10 Coding CPT Codes CPT Codes: ANESTH NOSE/SINUS SURGERY - 10630 ([id number]) P2 - PATIENT W/MILD SYST DISEASE, QK - GENERAL DUTY NURSE 2-4 CNCRNT ANES PROC, QX - HAT IRONER SVC W/ MD MED DIRECTION
--- NOTE | 2025-03-27 14:36 | W.ANESCHARGE ---
Anesthesia Charges Start Date/Time Anesthesia Start Date: 03/27/25 Anesthesia Start Time: 10:27 Stop Date/Time Anesthesia Stop Date: 03/27/25 Anesthesia Stop Time: 11:10 Coding CPT Codes CPT Codes: ANESTH NOSE/SINUS SURGERY - 65496 ([id number]) P2 - PATIENT W/MILD SYST DISEASE, QK - PHOTOGRAMMETRIC COMPILATION SPECIALIST 2-4 CNCRNT ANES PROC, QX - SUPERVISOR SOLDER MAKING SVC W/ MD MED DIRECTION
== END 2025-03-27 13:39 | disposition home or self-care (01) ==
LOC: OR 08:57
PROVIDERS: Anesthesiology; PCP Family Medicine; Visit Provider Otolaryngology
PROC: (CPT 30520; principal; 2025-03-27 10:15)
DX: J34.2 Deviated nasal septum (principal); J34.3 Hypertrophy of nasal turbinates; R51.9 Headache, unspecified; J34.89 Other specified disorders of nose and nasal sinuses
CPT/HCPCS: 30520; 30140; 30999; 00160; 81025; A9270; J0330; J1100; J2250; J2405; J2704; J3010; J3490; J7120